=== PATIENT | male | born 1960 | race Caucasian/White ===

== ENCOUNTER → 2019-02-09 07:28 | Outpatient (CLI) | payer OTHER, SELFPAY ==
--- NOTE | 2019-02-09 | DI.MRI.S_ITS ---
PROCEDURE: MR SHOULDER LT W CON INDICATIONS: PAIN IN LEFT SHOULDER TECHNIQUE: After the administration of 12 mL of dilute intra-articular Gadolinium contrast, oblique coronal T1 and T2 spin echo with fat saturation, oblique sagittal T1 spin echo with and without fat saturation, oblique sagittal T2 fast spin echo with fat saturation, axial T1 spin echo with fat saturation through the shoulder. COMPARISON: None. FINDINGS: Image quality: Diagnostic. Motion artifacts are noted during the study. Rotator cuff: There is full-thickness rupture of the distal supraspinatus and infraspinatus at their insertion on humeral head with 4.3 cm medial retraction of torn tendon fibers to the level of the glenoid. Distal subscapularis tendinosis and low-grade partial-thickness tear is also seen. Moderate supraspinatus muscle atrophy is seen on sagittal images. Bones and bursae: No bone marrow contusions or fractures. Mild to moderate acromioclavicular joint and glenohumeral joint osteoarthritis is seen.. Capsule and soft tissues: Area of signal abnormality in contrast extension into superior anterior labrum at 12 to 1:00 position is seen. There is also signal abnormality involving the anterior-inferior labrum at 5 to 6:00 position. The glenohumeral ligaments appear intact. The long head of the biceps tendon is not visualized, concerning for torn intra-articular portion of long head biceps tendon. The rotator interval appears normal, without fibrosis. The coracohumeral ligament is of normal thickness. No intra-articular bodies. IMPRESSION: 1. Full-thickness rupture of distal supraspinatus and infraspinatus with 4.3 cm medial retraction of torn tendon fibers to the level of glenoid. Moderate supraspinatus muscle atrophy. Tendinosis and low grade intrasubstance partial-thickness tear involving distal subscapularis. 2. Moderate acromioclavicular joint and glenohumeral joint osteoarthritis. 3. Suggestion of focal superior anterior labral tear at 12 to 1:00 position an anterior-inferior labral tear at 5 to 6:00 position. 4. Nonvisualization of the intra-articular portion of long head biceps tendon concerning for proximal long head bicipital tendon tear. Dictated by: Lucas Mcclendon M.D. on 02/09/2019 at 11:36 Approved by: Lucas Mcclendon M.D. on 02/09/2019 at 12:51
--- NOTE | 2019-02-09 | DI.RAD.S_ITS ---
PROCEDURE: FL SHOULDER INJECTION MR/CT LT INDICATIONS: PAIN IN LEFT SHOULDER TECHNIQUE: The indications, alternatives, benefits, risks, and complications of the procedure were explained to the patient. Written informed consent was obtained and placed in the chart. The shoulder was examined fluoroscopically and a site for needle placement chosen for entry into the glenohumeral joint from an anterior approach. The skin was prepped and draped in a sterile fashion, and 1% lidocaine infiltrated from skin down to joint capsule. A spinal needle was inserted into the glenohumeral joint, and a small amount of iodinated contrast media injected to confirm intra-articular placement of the needle tip. This was followed by approximately 12 mL dilute solution of a gadolinium containing MR contrast agent. The needle was removed and a dressing was applied. The patient was given postprocedural instructions and sent to the MR suite for MR imaging. FINDINGS: A single fluoroscopic spot image demonstrates intra-articular location of injected iodinated contrast. IMPRESSION: Successful fluoroscopically guided administration of dilute Gadolinium solution into the shoulder joint for MR arthrogram. Dictated by: Larry Nash M.D. on 02/09/2019 at 8:40 Approved by: Larry Nash M.D. on 02/09/2019 at 8:41
== END ==
PROVIDERS: PCP Family Medicine; Visit Provider Family Medicine
DX: M25.512 Pain in left shoulder (principal); M19.012 Primary osteoarthritis, left shoulder; M75.122 Complete rotator cuff tear or rupture of left shoulder, not specified as traumatic
CPT/HCPCS: 23350; 73222; 77002; A9579

== ENCOUNTER 2019-02-24 17:40 | Emergency (ER) | payer OTHER, SELFPAY ==
[2019-02-24 17:52] VITALS: BP 137/85; PULSE 69; RESP 16; TEMP 36.7; O2SAT 96; BMI 34.3
--- NOTE | 2019-02-24 18:27 | PC.NURSE ---
pts inner upper thigh just below groin has an area that is red and hard to touch with the center of it being bright red with 3 white spots on it. Pt has hx MRSA and is concerned that it may be MRSA again.
--- NOTE | 2019-02-24 18:41 | ED.SKABFB ---
HPI - Skin/Abscess/Foreign Bdy <Debo Dixon PA-C - Last Filed: 02/24/19 20:36> General Chief complaint: Skin/Abscess/Foreign Body Stated complaint: CYST INNER THIGH RIGHT LEG Time Seen by Provider: 02/24/19 18:03 Source: patient Mode of arrival: Ambulatory Limitations: no limitations History of Present Illness HPI narrative: This 58-year-old gentleman comes in due to concern for cyst or abscess that is infected on his right inner thigh. He states he has had MRSA in the past so thought he should have this checked. He denies any known injury or wound, notice this on Thursday while showering. He states this is not acutely more painful or enlarging, states it did drain some fluid previously not exactly sure what. He denies any fever or other new complaints, states unable to get in quickly with his PCP so came here. Related Data Previous Rx's Medication Instructions Recorded sulfamethoxazole-trimethoprim 1 tab PO Q12H 7 Days #14 tab 02/24/19 [Bactrim DS] Allergies Allergy/AdvReac Type Severity Reaction Status Date / Time No Known Drug Allergies Allergy Verified 02/24/19 17:54 Review of Systems <Debo Dixon PA-C - Last Filed: 02/24/19 20:36> Review of Systems ROS Unobtainable: All systems reviewed & are unremarkable except as noted in HPI and below Patient History <Debo Dixon PA-C - Last Filed: 02/24/19 20:36> Medical History (Updated 02/24/19 @ 19:11 by Debo Dixon PA-C) Cervical radiculopathy (Chronic) Hyperlipidemia (Chronic) Low back pain (Chronic) Lower leg edema (Chronic) 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 LUNGS: Clear to auscultation bilaterally. HEART: Rate and rhythm regular without murmur, normal S1 and S2, no S3 or S4. EXTREMITIES: Trace edema, numerous varicosities DERMATOLOGIC: Right medial thigh there is a mildly erythematous indurated area approximately 2.5 cm largest diameter, no fluctuance or drainage expressed, skin is normal temperature, no streaking Initial Vital Signs Initial Vital Signs: Vital Signs Temperature 98.1 F 02/24/19 17:52 Pulse Rate 69 02/24/19 17:52 Respiratory Rate 16 02/24/19 17:52 Blood Pressure 137/85 02/24/19 17:52 Pulse Oximetry 96 02/24/19 17:52 <Porter Koehler DO - Last Filed: 02/25/19 03:01> Initial Vital Signs Initial Vital Signs: Vital Signs Temperature 98.1 F 02/24/19 17:52 Pulse Rate 69 02/24/19 17:52 Respiratory Rate 16 02/24/19 17:52 Blood Pressure 137/85 02/24/19 17:52 Pulse Oximetry 96 02/24/19 17:52 Course <Debo Dixon PA-C - Last Filed: 02/24/19 20:36> Course Additional Information: Suspect that this abscess already drained as it is indurated, not fluctuated this evening. He does have a history of MRSA and [id number] diabetes. Will start Bactrim and advised her 72 hour follow-up with PCP. He is agreeable with this as well as plan to return if any acutely worsening symptoms in the interim Vital Signs Vital signs: Vital Signs - 8 hr 02/24/19 17:52 Temperature 98.1 F Pulse Rate 69 Respiratory Rate 16 Blood Pressure 137/85 Pulse Oximetry 96 <DO Yuli Adkins Last Filed: 02/25/19 03:01> Vital Signs Vital signs: Vital Signs - 8 hr 02/24/19 17:52 Temperature 98.1 F Pulse Rate 69 Respiratory Rate 16 Blood Pressure 137/85 Pulse Oximetry 96 Discharge Plan Departure Patient Disposition: Home Clinical Impression: Cellulitis Qualifiers: Site of cellulitis: extremity Site of cellulitis of extremity: lower extremity Laterality: right Qualified Code(s): L03.115 - Cellulitis of right lower limb Abscess of skin or subcutaneous tissue Qualifiers: Site of cutaneous abscess: extremity Site of cutaneous abscess of extremity: lower extremity Laterality: right Qualified Code(s): L02.415 - Cutaneous abscess of right lower limb Discharge Date/Time: 02/24/19 19:16 Instructions: DI for Cellulitis -- Child, DI for Skin Abscess Activity Restrictions/Additional Instructions: Based on your exam today I do think you have an abscess and skin infection, however the abscess does not appear to need to be drained now (it sounds like it partially drained already). Given your history of MRSA, I have prescribed an antibiotic called Bactrim for you to start this evening. Please take it twice daily. Please hot pack this area as frequently as possible to help it drain if it needs to. Remain off of work tomorrow to avoid friction on the area. Please call your PCP 1st thing tomorrow and arrange for follow-up on Thursday so that it can be reassessed about 72 hours after starting the antibiotic. As we talked about, you should return to the ED if you have any acutely worsening symptoms or new symptoms such as fever in the interim Prescriptions: New sulfamethoxazole-trimethoprim [Bactrim DS] 800-160 mg tablet 1 tab PO Q12H 7 Days Qty: 14 RF: 0 Referrals: Claudia Smith MD [Primary Care Provider] -
== END 2019-02-24 19:16 | disposition home or self-care (01) ==
PROVIDERS: Emergency Provider Internal Medicine; PCP Family Medicine
DX: L03.115 Cellulitis of right lower limb (principal); L02.415 Cutaneous abscess of right lower limb
CPT/HCPCS: 99282; 99283

== ENCOUNTER → 2020-03-08 09:51 | Outpatient (CLI) | payer OTHER, SELFPAY ==
--- NOTE | 2020-03-08 | DI.MRI.S_ITS ---
PROCEDURE: MR CERVICAL SPINE WO/W CON INDICATIONS: Monoplegia of upper limb affecting TECHNIQUE: Noncontrast sagittal T1 spin echo and T2 fast spin echo, sagittal STIR, foraminal oblique sagittal T2 fast spin echo, axial gradient echo or T2 fast spin echo through the cervical spine. After the administration of contrast, axial and sagittal T1 spin echo with fat saturation through the cervical spine. COMPARISON: Outside Facility, [facility], MRI C-SPINE W/O CONTRAST, 11/01/2010, 8:00. FINDINGS: Image quality: Degraded by motion artifact. Alignment and curvature: There is loss of normal cervical lordosis. There is mild grade 1 anterolisthesis of C2 on C3. Mild grade 1 retrolisthesis of C3 on C4 and C4 on C5. Marrow: Marrow is normal in overall signal, without suspicious enhancement. Fusion at C6-C7 is present. There is mild reactive signal within the endplates adjacent to the C2-C3, C3-C4, C4-C5, and C5-C6 intervertebral discs. Spinal cord: Within the left posterior cord at the upper C5 level, there is an unenhancing high T2 intensity focus measuring 6 mm craniocaudal by 4 mm anteroposterior by 3 mm transverse, as before. No cerebellar tonsillar herniation. No abnormal intramedullary enhancement. Paraspinous soft tissues: No paravertebral masses or suspicious enhancement. C2-3: Congenital canal stenosis. Moderate disc desiccation. Mild diffuse disc bulge. Mild facet and uncovertebral hypertrophy bilaterally. Moderate canal stenosis. Moderate right and mild left foraminal stenosis. No change. C3-4: Congenital canal stenosis. Moderate disc height loss and desiccation. Moderate diffuse disc bulge. Moderate facet and uncovertebral hypertrophy bilaterally. Moderate to severe canal stenosis. Minimal anterior cord flattening. Severe bilateral foraminal stenosis with bilateral L4 nerve root compression. No change. C4-5: Congenital canal stenosis. Moderate disc height loss and desiccation. Moderate diffuse disc bulge/osteophyte with superimposed broad-based central protrusion. Moderate facet and uncovertebral hypertrophy bilaterally. Severe canal stenosis. Moderate cord flattening. Severe bilateral foraminal stenosis with bilateral C5 nerve root compression. No change. C5-6: Congenital canal stenosis. Moderate disc height loss and desiccation. Mild diffuse disc bulge with superimposed broad-based left posterolateral protrusion. Severe canal stenosis. Mild cord flattening. Severe left and moderate right foraminal stenosis. Left C6 nerve root compression. No change. C6-7: Status post fusion. Mild residual osteophyte. Mild facet and uncovertebral hypertrophy bilaterally. Moderate canal stenosis. Mild bilateral foraminal stenosis. No change. C7-T1: Congenital canal stenosis. Moderate disc height loss and desiccation. Mild diffuse disc bulge with superimposed broad-based right posterolateral and far lateral protrusion. Mild facet and uncovertebral hypertrophy bilaterally. Moderate canal stenosis. Severe right and moderate left foraminal stenosis. Right C8 nerve root compression. No change. IMPRESSION: 1. Diffuse congenital canal stenosis with superimposed disc and facet disease, as well as uncovertebral hypertrophy. 2. Multilevel canal stenosis, with associated cord flattening at C3-C4, C4-C5, and C5-C6. 3. Multilevel foraminal stenosis, worst at C3-C4, C4-C5, C5-C6, and C7-T1 where there is associated intraforaminal nerve root compression. Recommend correlation with clinical symptoms to ascertain relevance of these findings. 4. Focal region of cord injury/gliosis within the lower cervical cord is unchanged. Dictated by: Lurdes Tovar M.D. on 03/08/2020 at 10:04 Approved by: Lurdes Tovar M.D. on 03/08/2020 at 10:12
== END ==
PROVIDERS: PCP Family Medicine; Referring Provider Internal Medicine; Visit Provider Internal Medicine
DX: G83.20 Monoplegia of upper limb affecting unspecified side (principal); M48.02 Spinal stenosis, cervical region
CPT/HCPCS: 72156

== ENCOUNTER 2020-06-15 15:34 | Emergency (ER) | payer OTHER, SELFPAY ==
[2020-06-15 15:53] VITALS: BP 173/84; PULSE 87; RESP 16; TEMP 36.4; O2SAT 97; BMI 33.1
[2020-06-15 16:31] LABS: Add Manual Diff / Slide Review NO; Basophils Absolute Auto 100 /uL (0-100); Basophils Percent Auto 0.3 % (0-2); Eosinophils Absolute Auto 100 /uL (0-450); Eosinophils Percent Auto 0.6 % (2-4); Hemoglobin 14.3 g/dL (13.5-17.5); Lymphocytes Absolute Auto 2100 /uL (1100-4500); Lymphocytes Percent Auto 13.6 % (25-40); Mean Corpuscular HGB Conc 33.9 % (30-36); Mean Corpuscular Hemoglobin 30.6 PG (26-34); Mean Corpuscular Volume 90.3 fL (80-100); Monocytes Absolute Auto 1200 /uL (0-900); Neutrophils Absolute Auto 11800 /uL (1500-7000); Neutrophils Percent Auto 77.5 % (50-75); Platelet Count 169 X10^3/uL (150-400); Red Blood Cell Count 4.65 X10^6/uL (4.5-5.9); Red Cell Distribution Width 12.6 % (11.6-14.8); White Blood Cell Count 15.2 X10^3/uL (4.5-11.0)
[2020-06-15 16:32] LABS: INR 1.1 (0.9-1.3); Prothrombin Time 12.8 SECONDS (10.1-12.7)
[2020-06-15 16:34] LABS: PTT Partial Thromboplastin Tim 35 SECONDS (26.4-36.2)
[2020-06-15 16:40] LABS: Alanine Aminotransferase 32 IU/L (<50); Albumin 4.5 g/dL (3.5-5.0); Albumin Globulin Ratio 1.6 (1.0-2.8); Alkaline Phosphatase 79 U/L (38-126); Aspartate Aminotransferase 27 IU/L (17-59); BUN Creatinine Ratio 25.9 (6-22); Bilirubin Total 1.7 mg/dL (0.2-1.3); Blood Urea Nitrogen 14 mg/dL (9-20); Calcium 9.7 mg/dL (8.4-10.2); Carbon Dioxide 30 mmol/L (22-32); Chloride 96 mmol/L (98-107); Estimated Glomerular Filt Rate > 60.0 mL/min (>60); Globulin 2.8 g/dL (1.7-4.1); Glucose 318 mg/dL (70-100); HEMOLYSIS < 15 (0-50); Lipase 56 U/L (23-300); Potassium 3.6 mmol/L (3.4-5.1); Sodium 133 mmol/L (137-145); Total Protein 7.3 g/dL (6.3-8.2)
[2020-06-15 16:41] LABS: Lactate (Lactic Acid) 1.6 mmol/L (0.7-2.1)
[2020-06-15 16:43] LABS: C-Reactive Protein Quant 3.2 mg/dL (<1.0)
[2020-06-15 16:57] LABS: Procalcitonin 0.07 ng/mL (<0.5)
[2020-06-15 17:06] LABS: Erythrocyte Sedimentation Rate 17 MM/HR (0-15)
--- NOTE | 2020-06-15 17:08 | ED.SKABFB ---
HPI - Skin/Abscess/Foreign Bdy General Chief complaint: Skin/Abscess/Foreign Body Stated complaint: thinks left knee is infected Time Seen by Provider: 06/15/20 17:08 Source: patient Mode of arrival: Ambulatory Limitations: no limitations History of Present Illness HPI narrative: 60-year-old male here for evaluation of redness around the outside of his left knee. He states that approximately 1 week ago he did do quite a bit of work when he was on his knees however he did not think that he injured his knee. He did has some blisters over his knee but this seemed to have healed. Last evening he started noticing some discomfort in his knee which worsened overnight and then today started to developed redness. He has also had chills. No objective fevers. Related Data Home Medications Medication Instructions Recorded Confirmed atorvastatin 80 mg tablet 80 mg PO DAILY 05/02/19 05/02/19 gabapentin 600 mg tablet 600 mg PO QID tab 05/02/19 05/02/19 hydrochlorothiazide 25 mg tablet 25 mg PO DAILY 05/02/19 05/02/19 metformin 500 mg tablet 500 mg PO QID tab 05/02/19 05/02/19 naproxen 500 mg tablet 500 mg PO DAILY tab 05/02/19 05/02/19 sitagliptin 100 mg tablet 100 mg PO DAILY 05/02/19 05/02/19 Previous Rx's Medication Instructions Recorded clindamycin HCl 300 mg PO QID 9 Days #36 cap 06/15/20 Allergies Allergy/AdvReac Type Severity Reaction Status Date / Time No Known Drug Allergies Allergy Verified 06/15/20 15:57 Review of Systems Constitutional Constitutional: Reports chills and Denies fever(s) Cardiovascular Cardiovascular: Denies chest pain and Denies dyspnea Respiratory Respiratory: Denies dyspnea Gastrointestinal Gastrointestinal: Denies abdominal pain Musculoskeletal Comments: Discomfort around the left knee Integumentary/Breasts Comments: Redness around the left knee Neurologic Neurologic: Denies behavioral changes Psychiatric Psychiatric: Denies behavioral changes Hematologic/Lymphatic On Anticoagulants: No Allergic/Immunologic Allergic/Immunologic: Denies urticaria Patient History Medical History Cervical radiculopathy Hyperlipidemia Labral tear of shoulder Low back pain Lower leg edema Non-insulin dependent type 2 diabetes mellitus Osteoarthritis Rotator cuff tear Surgical History Status post cervical discectomy Status post hernia repair Social History marital status: Smoking Status: Current some day smoker Smoking Status: Current some day smoker alcohol intake frequency: other Substance Use Type: does not use Exam Initial Vital Signs Initial Vital Signs: Vital Signs Temperature 97.6 F 06/15/20 15:53 Pulse Rate 87 06/15/20 15:53 Respiratory Rate 16 06/15/20 15:53 Blood Pressure 173/84 H 06/15/20 15:53 Pulse Oximetry 97 06/15/20 15:53 Const General: cooperative and comfortable Resp Effort & Inspection: normal respiratory effort Cardio Rate: regular rate Pulses: dorsalis pedis present on the left Skin Other: Patient with a area of redness around the anterior portion the left knee. Does not extend posterior. Neuro General: patient alert, patient awake, patient oriented x3 and moves all extremities Sensory Exam: no sensory deficits noted Extrem Other: Patient does have full range of motion of the left hip left knee and left ankle with minimal tenderness. Psych Appearance: grossly normal and well kempt Course Orders Ordered: ED Orders 06/15/20 16:20 C-Reactive Protein Quant Stat Complete Blood Count AUTO DIFF Stat Comprehensive Metabolic Panel Stat Erythrocyte Sedimentation Rate Stat Lactate (Lactic Acid) Stat Lipase Stat Partial Thromboplastin Time Stat Procalcitonin Stat Prothrombin Time INR Stat Discontinued Medications Clindamycin Phosphate (Cleocin) 900 mg in 50 mls @ 50 mls/hr IV NOW ONE Stop: 06/15/20 18:08 Last Admin: 06/15/20 17:41 Dose: 50 mls/hr Documented by: HUGH Vital Signs Vital signs: Vital Signs - 8 hr 06/15/20 15:53 Temperature 97.6 F Pulse Rate 87 Respiratory Rate 16 Blood Pressure 173/84 H Pulse Oximetry 97 MDM - Skin/Abscess/Foreign Bdy Lab Data Attestation: I reviewed the patient's lab results. Result diagrams: 06/15/20 16:20 06/15/20 16:20 Labs: Lab Results 06/15/20 06/15/20 06/15/20 Range/Units 16:20 16:20 16:20 WBC 15.2 H (4.5-11.0) X10^3/uL RBC 4.65 (4.5-5.9) X10^6/uL Hgb 14.3 (13.5-17.5) g/dL Hct 42.0 (41-53) % MCV 90.3 (80-100) fL MCH 30.6 (26-34) PG MCHC 33.9 (30-36) % RDW 12.6 (11.6-14.8) % Plt Count 169 (150-400) X10^3/uL Neut % (Auto) 77.5 H (50-75) % Lymph % (Auto) 13.6 L (25-40) % Metcalfe % (Auto) 8.0 (3-14) % Eos % (Auto) 0.6 L (2-4) % Baso % (Auto) 0.3 (0-2) % Neut # (Auto) 62924 H (6137-5546) /uL Lymph # (Auto) 2100 (6369-0003) /uL Metcalfe # (Auto) 1200 H (0-900) /uL Eos # (Auto) 100 (0-450) /uL Baso # (Auto) 100 (0-100) /uL ESR (0-15) MM/HR PT 12.8 H (10.1-12.7) SECONDS INR 1.1 (0.9-1.3) APTT 35 (26.4-36.2) SECONDS Sodium 133 L (137-145) mmol/L Potassium 3.6 (3.4-5.1) mmol/L Chloride 96 L (98-107) mmol/L Carbon Dioxide 30 (22-32) mmol/L BUN 14 (9-20) mg/dL Creatinine 0.54 L (0.66-1.25) mg/dL Estimated GFR > 60.0 (>60) mL/min BUN/Creatinine Ratio 25.9 H (6-22) Glucose 318 H (70-100) mg/dL Lactate (0.7-2.1) mmol/L Calcium 9.7 (8.4-10.2) mg/dL Total Bilirubin 1.7 H (0.2-1.3) mg/dL AST 27 (17-59) IU/L ALT 32 (<50) IU/L Alkaline Phosphatase 79 (38-126) U/L C-Reactive Protein (<1.0) mg/dL Total Protein 7.3 (6.3-8.2) g/dL Albumin 4.5 (3.5-5.0) g/dL Globulin 2.8 (1.7-4.1) g/dL Albumin/Globulin Ratio 1.6 (1.0-2.8) Lipase 56 (23-300) U/L Procalcitonin 0.07 (<0.5) ng/mL 06/15/20 06/15/20 06/15/20 Range/Units 16:20 16:20 16:20 WBC (4.5-11.0) X10^3/uL RBC (4.5-5.9) X10^6/uL Hgb (13.5-17.5) g/dL Hct (41-53) % MCV (80-100) fL MCH (26-34) PG MCHC (30-36) % RDW (11.6-14.8) % Plt Count (150-400) X10^3/uL Neut % (Auto) (50-75) % Lymph % (Auto) (25-40) % Metcalfe % (Auto) (3-14) % Eos % (Auto) (2-4) % Baso % (Auto) (0-2) % Neut # (Auto) (7685-8152) /uL Lymph # (Auto) (6830-7437) /uL Metcalfe # (Auto) (0-900) /uL Eos # (Auto) (0-450) /uL Baso # (Auto) (0-100) /uL ESR 17 H (0-15) MM/HR PT (10.1-12.7) SECONDS INR (0.9-1.3) APTT (26.4-36.2) SECONDS Sodium (137-145) mmol/L Potassium (3.4-5.1) mmol/L Chloride (98-107) mmol/L Carbon Dioxide (22-32) mmol/L BUN (9-20) mg/dL Creatinine (0.66-1.25) mg/dL Estimated GFR (>60) mL/min BUN/Creatinine Ratio (6-22) Glucose (70-100) mg/dL Lactate 1.6 (0.7-2.1) mmol/L Calcium (8.4-10.2) mg/dL Total Bilirubin (0.2-1.3) mg/dL AST (17-59) IU/L ALT (<50) IU/L Alkaline Phosphatase (38-126) U/L C-Reactive Protein 3.2 H (<1.0) mg/dL Total Protein (6.3-8.2) g/dL Albumin (3.5-5.0) g/dL Globulin (1.7-4.1) g/dL Albumin/Globulin Ratio (1.0-2.8) Lipase (23-300) U/L Procalcitonin (<0.5) ng/mL MDM Narrative Medical decision making narrative: Patient does have leukocytosis and physical exam findings consistent with an infection around his left knee. Given his presentation and the fact that he can bend his left knee I do have a very low suspicion for a septic joint. I have a higher suspicion for either a bursitis/septic bursitis/cellulitis. Patient is nontoxic appearing. He is neurovascularly intact. I feel given the redness around his knee and my low suspicion for septic joint that performing a arthrocentesis would not be peña has I would have to go through the cellulitic skin tissue in order to obtain the fluid. I did discuss this with him and he agrees on holding on any sort of procedure for now. He does not have any crepitus or other findings concerning for a necrotizing infection. Patient was given antibiotics here in the emergency department and will send home with a prescription for oral antibiotics. He was given strict return precautions and follow-up instructions. He expressed understanding and agreement. Discharge Plan Departure Patient Disposition: Home Clinical Impression: Cellulitis Instructions: DI for Cellulitis -- Adult Activity Restrictions/Additional Instructions: The redness around her knee today is concerning for a skin infection which is cold cellulitis. Based on the fact you can been here today I do feel that an infection inside your knee is unlikely however if your symptoms worsen despite the antibiotics or you start to get worsening redness or cannot take the antibiotic please return to the emergency department for further evaluation. Prescriptions: New clindamycin HCl 300 mg capsule 300 mg PO QID 9 Days Qty: 36 RF: 0 No Action metformin 500 mg tablet 500 mg PO QID RF: 0 atorvastatin 80 mg tablet 80 mg PO DAILY RF: 0 hydrochlorothiazide 25 mg tablet 25 mg PO DAILY RF: 0 gabapentin [Neurontin] 600 mg tablet 600 mg PO QID RF: 0 Januvia 100 mg tablet 100 mg PO DAILY RF: 0 naproxen 500 mg tablet 500 mg PO DAILY RF: 0
[2020-06-15] MEDS: CLINDAMYCIN 900 MG/50 ML PIGGYBACK 50 MG IV (17:41)
[2020-06-15 18:54] VITALS: BP 148/76; PULSE 78; RESP 16; O2SAT 98
== END 2020-06-15 18:55 | disposition home or self-care (01) ==
PROVIDERS: Emergency Provider Emergency Medicine
DX: L03.116 Cellulitis of left lower limb (principal)
CPT/HCPCS: 36415; 80053; 83605; 83690; 84145; 85025; 85610; 85651; 85730; 86140; 96365; 99281; 99284

== ENCOUNTER 2020-06-17 06:06 | Emergency (ER) | payer OTHER, SELFPAY ==
[2020-06-17 06:15] VITALS: BP 179/84; PULSE 75; RESP 18; TEMP 37.1; O2SAT 98; BMI 34.2
--- NOTE | 2020-06-17 06:31 | ED_ITS ---
HPI - Extremity Injury (Lower) <Fatou Miller DO - Last Filed: 06/17/20 18:03> General Chief Complaint: Extremity Injury, Lower Stated Complaint: left knee infection, spreading Time Seen by Provider: 06/17/20 06:26 Source: patient Mode of arrival: Ambulatory Limitations: no limitations History of Present Illness HPI Narrative: 60-year-old male who presents with left knee cellulitis infec tion. He was seen evaluated here 2 days ago he was started on clindamycin which he says is been taking however the erythema has gone far beyond the marked line. He is able to ambulate and weightbear he says he is not in a lot of pain but he noticed the redness seems to be spreading. He denies any fever or chills. No injury to the knee. I said initially started as a blister and progressively w orsened. Related Data Home Medications Medication Instructions Recorded Confirmed atorvastatin 80 mg tablet 80 mg PO DAILY 05/02/19 05/02/19 gabapentin 600 mg tablet 600 mg PO QID tab 05/02/19 05/02/19 hydrochlorothiazide 25 mg tablet 25 mg PO DAILY 05/02/19 05/02/19 metformin 500 mg tablet 500 mg PO QID tab 05/02/19 05/02/19 naproxen 500 mg tablet 500 mg PO DAILY tab 05/02/19 05/02/19 sitagliptin 100 mg tablet 100 mg PO DAILY 05/02/19 05/02/19 Previous Rx's Medication Instructions Recorded clindamycin HCl 300 mg PO QID 9 Days #36 cap 06/15/20 Allergies Allergy/AdvReac Type Severity Reaction Status Date / Time No Known Drug Allergies Allergy Verified 06/15/20 15:57 Review of Systems <Fatou Miller DO - Last Filed: 06/17/20 18:03> Review of Systems Narrative: GENERAL: Denies chills, fatigue, malaise, fever, sweats, travel HEENT: Denies sinus pain, ear pain, sore throat, difficulty swallowing, neck pain RESPIRATORY: Denies dyspnea, cough, wheezing, hemoptysis, sputum. CARDIOVASCULAR: Denies chest pain, palpitations, orthopnea, edema GASTROINTESTINAL: Denies nausea, vomiting, abdominal pain, diarrhea, constipat ion, melena. : Denies dysuria, frequency, incontinence, hematuria, urinary retention, flank pain. MUSCULOSKELETAL: Denies weakness, joint pain, or bony pain SKIN: See HPI NEUROLOGIC: Denies weakness, dizziness, headache, numbness, change in speech, confusion PSYCHIATRIC: No concerning psychosocial issues. 12 point review of systems is negative except for those stated above and HPI Patient History <Fatou Miller DO - Last Filed: 06/17/20 18:03> Medical History Cervical radiculopathy Hyperlipidemia Labral tear of shoulder Low back pain Lower leg edema Non-insulin dependent type 2 diabetes mellitus Osteoarthritis Rotator cuff tear Surgical History Status post cervical discectomy Status post hernia repair Social History marital status: Smoking Status: Current some day smoker Smoking Status: Current some day smoker alcohol intake frequency: other Substance Use Type: does not use Exam <Fatou Miller DO - Last Filed: 06/17/20 18:03> Initial Vital Signs Initial Vital Signs: Vital Signs Temperature 98.7 F 06/17/20 06:15 Pulse Rate 75 06/17/20 06:15 Respiratory Rate 18 06/17/20 06:15 Blood Pressure 179/84 H 06/17/20 06:15 Pulse Oximetry 98 06/17/20 06:15 GENERAL: Pleasant 60-year-old male and in no acute distress. HEENT: Head atraumatic,EOMI, pupils reactive, face symmetric, moist mucous membranes CARDIOVASCULAR: Regular rate and rhythm without murmurs, rubs or gallops. RESPIRATORY: Breath sounds equal bilaterally, no wheezes rales or rhonchi. EXTREMITIES: Normal range of motion, no clubbing or edema. Neurovascularly intact Of left knee patellar swelling but nontender full flexion and extension no flow slightly limited to this swelling NEUROLOGICAL: Alert and oriented x4.Normal gait and speech. Cranial nerves II through XII grossly intact. SKIN: Left knee is erythematous and down mid lower leg and spreading beyond the marked line more than 3 finger. A blanchable <Colt Rivera DO - Last Filed: 06/17/20 08:02> Initial Vital Signs Initial Vital Signs: Vital Signs Temperature 98.7 F 06/17/20 06:15 Pulse Rate 75 06/17/20 06:15 Respiratory Rate 18 06/17/20 06:15 Blood Pressure 179/84 H 06/17/20 06:15 Pulse Oximetry 98 06/17/20 06:15 Course <Fatou Miller DO - Last Filed: 06/17/20 18:03> Orders Ordered: Discontinued Medications Ceftriaxone Sodium/Dextrose (Rocephin) 1 gm in 50 mls @ 100 mls/hr IV NOW ONE Stop: 06/17/20 07:18 Last Infusion: 06/17/20 08:10 Dose: Infused Documented by: Vital Signs Vital signs: Vital Signs - 8 hr 06/17/20 06:15 Temperature 98.7 F Pulse Rate 75 Respiratory Rate 18 Blood Pressure 179/84 H Pulse Oximetry 98 <Colt Rivera DO - Last Filed: 06/17/20 08:02> Orders Ordered: Discontinued Medications Ceftriaxone Sodium/Dextrose (Rocephin) 1 gm in 50 mls @ 100 mls/hr IV NOW ONE Stop: 06/17/20 07:18 Last Infusion: 06/17/20 08:10 Dose: Infused Documented by: Vital Signs Vital signs: Vital Signs - 8 hr 06/17/20 06:15 Temperature 98.7 F Pulse Rate 75 Respiratory Rate 18 Blood Pressure 179/84 H Pulse Oximetry 98 MDM - Extremity Injury (Lower) <DO Yuli Lopez Last Filed: 06/17/20 18:03> Lab Data Result diagrams: 06/17/20 06:45 06/17/20 06:45 Labs: Lab Results 06/17/20 06/17/20 Range/Units 06:45 06:45 WBC 10.9 (4.5-11.0) X10^3/uL RBC 4.36 L (4.5-5.9) X10^6/uL Hgb 13.4 L (13.5-17.5) g/dL Hct 39.6 L (41-53) % MCV 90.8 (80-100) fL MCH 30.8 (26-34) PG MCHC 33.9 (30-36) % RDW 12.6 (11.6-14.8) % Plt Count 154 (150-400) X10^3/uL Neut % (Auto) 78.5 H (50-75) % Lymph % (Auto) 10.8 L (25-40) % Pratt % (Auto) 9.4 (3-14) % Eos % (Auto) 0.9 L (2-4) % Baso % (Auto) 0.4 (0-2) % Neut # (Auto) 8600 H (9600-0345) /uL Lymph # (Auto) 1200 (4340-9098) /uL Pratt # (Auto) 1000 H (0-900) /uL Eos # (Auto) 100 (0-450) /uL Baso # (Auto) 0 (0-100) /uL Sodium 135 L (137-145) mmol/L Potassium 3.9 (3.4-5.1) mmol/L Chloride 100 (98-107) mmol/L Carbon Dioxide 30 (22-32) mmol/L BUN 14 (9-20) mg/dL Creatinine 0.46 L (0.66-1.25) mg/dL Estimated GFR > 60.0 (>60) mL/min BUN/Creatinine Ratio 30.4 H (6-22) Glucose 295 H (70-100) mg/dL Calcium 9.3 (8.4-10.2) mg/dL Total Bilirubin 1.0 (0.2-1.3) mg/dL AST 19 (17-59) IU/L ALT 26 (<50) IU/L Alkaline Phosphatase 81 (38-126) U/L Total Protein 6.8 (6.3-8.2) g/dL Albumin 4.0 (3.5-5.0) g/dL Globulin 2.8 (1.7-4.1) g/dL Albumin/Globulin Ratio 1.4 (1.0-2.8) Procalcitonin 0.05 (<0.5) ng/mL <Colt Rivera, DO - Last Filed: 06/17/20 08:02> Lab Data Labs: Lab Results 06/17/20 06/17/20 Range/Units 06:45 06:45 WBC 10.9 (4.5-11.0) X10^3/uL RBC 4.36 L (4.5-5.9) X10^6/uL Hgb 13.4 L (13.5-17.5) g/dL Hct 39.6 L (41-53) % MCV 90.8 (80-100) fL MCH 30.8 (26-34) PG MCHC 33.9 (30-36) % RDW 12.6 (11.6-14.8) % Plt Count 154 (150-400) X10^3/uL Neut % (Auto) 78.5 H (50-75) % Lymph % (Auto) 10.8 L (25-40) % Pratt % (Auto) 9.4 (3-14) % Eos % (Auto) 0.9 L (2-4) % Baso % (Auto) 0.4 (0-2) % Neut # (Auto) 8600 H (2820-5872) /uL Lymph # (Auto) 1200 (7726-0884) /uL Pratt # (Auto) 1000 H (0-900) /uL Eos # (Auto) 100 (0-450) /uL Baso # (Auto) 0 (0-100) /uL Sodium 135 L (137-145) mmol/L Potassium 3.9 (3.4-5.1) mmol/L Chloride 100 (98-107) mmol/L Carbon Dioxide 30 (22-32) mmol/L BUN 14 (9-20) mg/dL Creatinine 0.46 L (0.66-1.25) mg/dL Estimated GFR > 60.0 (>60) mL/min BUN/Creatinine Ratio 30.4 H (6-22) Glucose 295 H (70-100) mg/dL Calcium 9.3 (8.4-10.2) mg/dL Total Bilirubin 1.0 (0.2-1.3) mg/dL AST 19 (17-59) IU/L ALT 26 (<50) IU/L Alkaline Phosphatase 81 (38-126) U/L Total Protein 6.8 (6.3-8.2) g/dL Albumin 4.0 (3.5-5.0) g/dL Globulin 2.8 (1.7-4.1) g/dL Albumin/Globulin Ratio 1.4 (1.0-2.8) Procalcitonin 0.05 (<0.5) ng/mL MDM Narrative Medical decision making narrative: Dr rivera: Received turned over from Dr Miller. I evaluated this patient couple days ago when he was here in the emergency department. I outlined the redness around his left knee. He received clindamycin here in the emergency department. He was given return instructions. I felt at that time that he did not have a septic joint. He returns to the emergency department today for worsening redness. He does admit that overall he feels much better. His chills and headaches are gone. He states that his knee is less tender. He states that the discomfort that he was having on the front of his knee has much improved. He even thinks that he could kneel if needed which he could not do a couple days ago. I evaluated the patient late in the day on Thursday. He states he woke up on Thursday and the redness had extended well outside of the line that we had drawn here in the ER. He did take 4 doses of his clindamycin on Thursday as directed. He also took 1 dose this morning. He stated that he did not want to come in yesterday because he thought that only 1 dose of antibiotics was not enough however when the redness was not gone this morning he thought he should be evaluated. He does not think that the redness is worse this morning than what it was yesterday. He still has no joint tenderness with flexion of his knee. He has no hip or ankle tenderness. His labs today show no leukocytosis. Has a negative procalcitonin. He is nontoxic appearing. He is afebrile. He is not tachycardic. He is not tachypneic. And clinically he looks very well. Had a discussion with him regarding her options which include admitting him to the hospital for IV antibiotics verses does changing him to another antibiotic versus giving him some more time on his current antibiotic. After this discussion the plan will be is to keep him on his current antibiotic. The new redness was outlined with a skin marker and he was given strict return precautions. Feel that we will no within the next 24-48 hours whether not the antibiotic that he is on is appropriate for this type of infection which it should be. He did express understanding that this could po tentially mean that he will need another emergency department visit. Discharge Plan Departure Patient Disposition: Home Clinical Impression: Cellulitis Instructions: DI for Cellulitis -- Adult Activity Restrictions/Additional Instructions: After our discussion today the plan will be is to continue you on your current antibiotic regimen. I am happy to hear that your generally feeling better. I suspect that we are going to know within the next 24-48 hours of your current antibiotic is working for this infection. If you start to feel poorly again or if you have more pain or if the redness extends outside the line that was drawn today please return to the emergency department has we will most likely need to either admit you to the hospital or switch antibiotics. Continue the rest your medications as directed. Prescriptions: No Action clindamycin HCl 300 mg capsule 300 mg PO QID 9 Days Qty: 36 RF: 0 metformin 500 mg tablet 500 mg PO QID RF: 0 atorvastatin 80 mg tablet 80 mg PO DAILY RF: 0 hydrochlorothiazide 25 mg tablet 25 mg PO DAILY RF: 0 gabapentin [Neurontin] 600 mg tablet 600 mg PO QID RF: 0 Januvia 100 mg tablet 100 mg PO DAILY RF: 0 naproxen 500 mg tablet 500 mg PO DAILY RF: 0
[2020-06-17 06:58] LABS: Add Manual Diff / Slide Review NO; Basophils Absolute Auto 0 /uL (0-100); Basophils Percent Auto 0.4 % (0-2); Eosinophils Absolute Auto 100 /uL (0-450); Eosinophils Percent Auto 0.9 % (2-4); Hematocrit 39.6 % (41-53); Hemoglobin 13.4 g/dL (13.5-17.5); Lymphocytes Absolute Auto 1200 /uL (1100-4500); Lymphocytes Percent Auto 10.8 % (25-40); Mean Corpuscular HGB Conc 33.9 % (30-36); Mean Corpuscular Hemoglobin 30.8 PG (26-34); Mean Corpuscular Volume 90.8 fL (80-100); Monocytes Absolute Auto 1000 /uL (0-900); Monocytes Percent Auto 9.4 % (3-14); Neutrophils Absolute Auto 8600 /uL (1500-7000); Neutrophils Percent Auto 78.5 % (50-75); Platelet Count 154 X10^3/uL (150-400); Red Blood Cell Count 4.36 X10^6/uL (4.5-5.9); Red Cell Distribution Width 12.6 % (11.6-14.8); White Blood Cell Count 10.9 X10^3/uL (4.5-11.0)
[2020-06-17 07:07] LABS: Alanine Aminotransferase 26 IU/L (<50); Albumin Globulin Ratio 1.4 (1.0-2.8); Alkaline Phosphatase 81 U/L (38-126); Aspartate Aminotransferase 19 IU/L (17-59); BUN Creatinine Ratio 30.4 (6-22); Blood Urea Nitrogen 14 mg/dL (9-20); Calcium 9.3 mg/dL (8.4-10.2); Carbon Dioxide 30 mmol/L (22-32); Chloride 100 mmol/L (98-107); Estimated Glomerular Filt Rate > 60.0 mL/min (>60); Globulin 2.8 g/dL (1.7-4.1); Glucose 295 mg/dL (70-100); HEMOLYSIS < 15 (0-50); Potassium 3.9 mmol/L (3.4-5.1); Sodium 135 mmol/L (137-145); Total Protein 6.8 g/dL (6.3-8.2)
[2020-06-17 07:24] LABS: Procalcitonin 0.05 ng/mL (<0.5)
[2020-06-17] MEDS: CEFTRIAXONE 1 GM/50 ML FROZ.PIGGY IV (07:36)
[2020-06-17 08:17] VITALS: BP 179/84; PULSE 82; RESP 16; O2SAT 99
== END 2020-06-17 08:19 | disposition home or self-care (01) ==
PROVIDERS: Emergency Medicine; Emergency Provider Emergency Medicine
DX: L03.116 Cellulitis of left lower limb (principal)
CPT/HCPCS: 36415; 80053; 84145; 85025; 87040; 96365; 99283; 99284

== ENCOUNTER → 2022-05-08 16:07 | Outpatient (CLI) | payer OTHER, SELFPAY ==
--- NOTE | 2022-05-08 16:09 | DI.MRI.S_ITS ---
PROCEDURE: MR LUMBAR SPINE WO CON INDICATIONS: Radiculopathy, lumbar region TECHNIQUE: Noncontrast sagittal T1 spin echo and T2 fast echo, sagittal STIR, and T2 fast spin echo through the lumbar spine. In cases with scoliosis, additional coronal T2 fast spin echo may be performed. COMPARISON: None. FINDINGS: Image quality: Excellent. Alignment and Curvature: There is approximately 5 mm of grade 1 anterolisthesis of L4 on L5. Severe bilateral facet arthropathy at this level. No definite pars defect identified. Bone Marrow: Marrow is of normal overall signal. No acute vertebral body compression fractures. Spinal Cord: Conus medullaris terminates at the L1 level. Visualized cord demonstrates normal signal and size. Paraspinous Soft Tissues: No paravertebral masses. T12-L1: Normal appearance. L1-L2: Mild bilateral facet arthropathy. Minimal loss of disc signal intensity. Small focal posterior midline disc protrusion. Mild ligamentum flavum hypertrophy. Minimal right neural foraminal stenosis. No significant spinal canal stenosis. L2-L3: There is minimal loss of disc height. Mild loss of disc signal intensity. Broad-based symmetric disc bulge. Mild bilateral facet arthropathy and ligamentum flavum hypertrophy. Combination of findings result in mild-moderate spinal canal stenosis and mild bilateral neural foraminal stenosis. L3-L4: Mild bilateral facet arthropathy. No significant spinal canal stenosis or neural foraminal stenosis. L4-L5: As described above, 5 mm of anterolisthesis of L4 on L5 with mild loss of signal intensity. Symmetric disc bulge and mild uncovering of the posterior L4-5 disc. Severe bilateral facet arthropathy and ligamentum flavum hypertrophy. Combination of findings result in moderate-severe spinal canal stenosis with moderate bilateral neural foraminal stenosis. L5-S1: Minimal loss of disc signal intensity. Small broad-based slightly eccentric to the left posterior disc bulge. Mild bilateral facet arthropathy. Mild left neural foraminal stenosis. No significant spinal canal stenosis. IMPRESSION: Multilevel, multifactorial lumbar spondylosis as described above by vertebral body level. Findings are most severe at L4-5 where combination of grade 1 anterolisthesis, severe bilateral facet arthropathy, disc bulge, and ligamentum flavum hypertrophy result in moderate-severe spinal canal stenosis and moderate bilateral neural foraminal stenosis. No acute abnormalities identified in the lumbar spine Dictated by: Larry Nash M.D. on 05/09/2022 at 8:16 Approved by: Larry Nash M.D. on 05/09/2022 at 8:36
== END ==
PROVIDERS: PCP Student in an Organized Health Care Education/Training Program; Referring Provider Student in an Organized Health Care Education/Training Program; Visit Provider Student in an Organized Health Care Education/Training Program
DX: M47.26 Other spondylosis with radiculopathy, lumbar region (principal); M43.16 Spondylolisthesis, lumbar region; M47.27 Other spondylosis with radiculopathy, lumbosacral region; M51.16 Intervertebral disc disorders with radiculopathy, lumbar region; E11.9 Type 2 diabetes mellitus without complications
CPT/HCPCS: 72148

== ENCOUNTER 2023-01-02 17:47 | Inpatient (IN) | payer OTHER, SELFPAY ==
[2023-01-02] VITALS (13 sets, daily range): BP systolic 130–160; BP diastolic 64–78; PULSE 73–93; RESP 14–26; TEMP 37.3–38.1; O2SAT 94–99; BMI 29.9
--- NOTE | 2023-01-02 17:57 | DI.RAD.S_ITS ---
PROCEDURE: XR CHEST 1V INDICATIONS: suspected sepsis TECHNIQUE: One view of the chest was acquired. COMPARISON: None. FINDINGS: Surgical changes and devices: None. Lungs and pleura: Lungs are clear. No pleural effusions or pneumothorax. Mediastinum: Mediastinal contours appear normal. Heart size is normal. Bones and chest wall: No suspicious bony lesions. Overlying soft tissues appear unremarkable. IMPRESSION: No acute cardiopulmonary abnormality. Dictated by: Mega Solis M.D. on 01/02/2023 at 18:46 Approved by: Mega Solis M.D. on 01/02/2023 at 18:47
[2023-01-02 18:19] LABS: Add Manual Diff / Slide Review NO; Basophils Absolute Auto 0 /uL (0-100); Basophils Percent Auto 0.3 % (0-2); Eosinophils Absolute Auto 100 /uL (0-450); Eosinophils Percent Auto 0.5 % (2-4); Hematocrit 38.4 % (41-53); Hemoglobin 13.1 g/dL (13.5-17.5); Lymphocytes Absolute Auto 1400 /uL (1100-4500); Lymphocytes Percent Auto 9.6 % (25-40); Mean Corpuscular HGB Conc 34.2 % (30-36); Mean Corpuscular Hemoglobin 31.6 PG (26-34); Mean Corpuscular Volume 92.6 fL (80-100); Monocytes Absolute Auto 1300 /uL (0-900); Monocytes Percent Auto 8.8 % (3-14); Neutrophils Absolute Auto 11700 /uL (1500-7000); Neutrophils Percent Auto 80.8 % (50-75); Platelet Count 188 X10^3/uL (150-400); Red Blood Cell Count 4.15 X10^6/uL (4.5-5.9); Red Cell Distribution Width 12.7 % (11.6-14.8); White Blood Cell Count 14.4 X10^3/uL (4.5-11.0)
[2023-01-02 18:27] LABS: INR 1.2 (0.9-1.3); Prothrombin Time 13.2 SECONDS (10.1-12.7)
[2023-01-02] MEDS: SODIUM CHLORIDE 0.9% 2,535 ML 845 ML IV (18:29)
[2023-01-02 18:30] LABS: PTT Partial Thromboplastin Tim 33 SECONDS (26-36)
[2023-01-02 18:31] LABS: Lactate (Lactic Acid) 1.2 mmol/L (0.7-2.1)
[2023-01-02 18:32] LABS: Alanine Aminotransferase 31 IU/L (<50); Albumin 4.5 g/dL (3.5-5.0); Albumin Globulin Ratio 1.5 (1.0-2.8); Alkaline Phosphatase 65 U/L (38-126); Aspartate Aminotransferase 23 IU/L (17-59); BUN Creatinine Ratio 17.5 (6-22); Bilirubin Total 1.3 mg/dL (0.2-1.3); Blood Urea Nitrogen 17 mg/dL (9-20); Calcium 10.5 mg/dL (8.4-10.2); Carbon Dioxide 29 mmol/L (22-32); Chloride 96 mmol/L (98-107); Estimated Glomerular Filt Rate > 60 mL/min (>60); Glucose 160 mg/dL (80-110); HEMOLYSIS < 15 (0-50); Lipase 264 U/L (23-300); Potassium 3.8 mmol/L (3.4-5.1); Sodium 135 mmol/L (137-145); Total Protein 7.5 g/dL (6.3-8.2)
[2023-01-02 18:36] LABS: C-Reactive Protein Quant 3.8 mg/dL (<1.0)
[2023-01-02 18:42] LABS: Erythrocyte Sedimentation Rate 33 MM/HR (0-15)
[2023-01-02 18:48] LABS: Procalcitonin 0.05 ng/mL (<0.5)
--- NOTE | 2023-01-02 18:54 | ED_ITS ---
HPI - Skin/Abscess/Foreign Bdy General Chief complaint: Skin/Abscess/Foreign Body Stated complaint: R knee infection Time Seen by Provider: 01/02/23 18:05 Source: patient Mode of arrival: Ambulatory Limitations: no limitations History of Present Illness HPI narrative: 62-year-old male diabetic and smoker presents with a chief complaint of rapidly worsening pain, redness and swelling on his right anterior knee and now up his lateral leg and down his lateral leg. He states that he was crawling on concrete 2 days ago and abraded his knee and now he has pain swelling redness fever and shaking chills. He is not dizzy or lightheaded but generally feels unwell. He has had MRSA in the past. He denies any chest pain or shortness of breath. Related Data Home Medications Medication Instructions Recorded Confirmed atorvastatin 80 mg tablet 80 mg PO DAILY 05/02/19 05/02/19 gabapentin 600 mg tablet 600 mg PO QID 05/02/19 05/02/19 (Neurontin) hydrochlorothiazide 25 mg tablet 25 mg PO DAILY 05/02/19 05/02/19 metformin 500 mg tablet 500 mg PO QID 05/02/19 05/02/19 naproxen 500 mg tablet 500 mg PO DAILY 05/02/19 05/02/19 sitagliptin phosphate 100 mg 100 mg PO DAILY 05/02/19 05/02/19 tablet (Januvia) Allergies Allergy/AdvReac Type Severity Reaction Status Date / Time No Known Drug Allergies Allergy Verified 01/02/23 17:55 Review of Systems Review of Systems Narrative: GENERAL: see HPI HEENT: Denies sinus pain, ear pain, sore throat, difficulty swallowing, dizziness. RESPIRATORY: Denies dyspnea, cough, wheezing, hemoptysis, sputum. CARDIOVASCULAR: Denies chest pain, palpitations, orthopnea, edema, GASTROINTESTINAL: Denies nausea, vomiting, abdominal pain, diarrhea, constipation, melena. : Denies dysuria, frequency, incontinence, hematuria, urinary retention. MUSCULOSKELETAL: denies weakness, joint pain, or bony pain SKIN: see HPI NEUROLOGIC: Denies weakness, headache, numbness, change in speech, confusion, seizures, incoordination. PSYCHIATRIC: No concerning psychosocial issues. 12 point review of systems is negative except for those stated above Patient History Medical History Cervical radiculopathy Hyperlipidemia Labral tear of shoulder Low back pain Lower leg edema Non-insulin dependent type 2 diabetes mellitus Osteoarthritis Rotator cuff tear Surgical History Status post cervical discectomy Status post hernia repair Social History marital status: Smoking Status: Current some day smoker Smoking Status: Current some day smoker tobacco type: cigarettes alcohol intake frequency: other Substance Use Type: does not use Exam Narrative Exam Narrative: GENERAL: [62] year old patient appears stated age. Well-developed patient, in mild distress. HEAD: Atraumatic. Normocephalic. EYES: Pupils equal round and reactive. Extraocular motions intact. No scleral icterus. No injection or drainage. ENT: Nose without bleeding, purulent drainage. Throat without erythema, tonsillar hypertrophy or exudate. Airway patent. NECK: Trachea midline. Non tender CARDIOVASCULAR: Tachycardic but regular rhythm without murmurs, gallops, or rubs. RESPIRATORY: Slightly tachypneic Clear to auscultation. Breath sounds equal bilaterally. No wheezes, rales, or rhonchi. GASTROINTESTINAL: Abdomen soft, non-tender, nondistended. EXTREMITIES: Right lower extremity with noted erythema overlying the patella and anterior knee, there is an abrasion and slight ulcerations centrally, no obvious fluctuance but there is induration, significant surrounding erythema on the anterior knee and extending up the right lateral thigh and somewhat inferiorly down the lateral calf. He has full relatively painless range of motion when flexing at the knee suggesting septic arthritis extremely unlikely, compartments are soft, neurovascular status intact BACK: Nontender without deformity or crepitance. No flank tenderness. NEURO: AOx3. SKIN: No rash or erythema of visible areas Initial Vital Signs Initial Vital Signs: Vital Signs Temperature 100.5 F H 01/02/23 17:49 Pulse Rate 93 H 01/02/23 17:49 Respiratory Rate 18 01/02/23 17:49 Blood Pressure 140/70 01/02/23 17:49 Pulse Oximetry 98 01/02/23 17:49 Oxygen Delivery Method Room Air 01/02/23 17:49 Course Orders Ordered: Acetaminophen (Acetaminophen 325 Mg Tablet) 650 mg PO Q6H PRN PRN Reason: Fever/Mild Pain (1-3) Atorvastatin Calcium (Atorvastatin 20 Mg Tablet) 80 mg PO DAILY [facility] Calcium Carbonate (Calcium Carbonate 500 Mg Tab) 1,000 mg PO Q4HR PRN PRN Reason: Dyspepsia Enoxaparin Sodium (Enoxaparin 40 Mg/0.4 Ml Syringe) 40 mg SUBCUT DAILY [facility] Vancomycin HCl/Dextrose (Vancomycin) 2,000 mg in 400 mls @ 200 mls/hr IV Q12H [facility] Last Infusion: 01/02/23 21:58 Dose: 0 mls/hr Documented By: Admin: 01/02/23 19:58 Dose: 200 mls/hr Documented By: BETITO Ibuprofen (Ibuprofen 400 Mg Tablet) 400 mg PO Q4H PRN PRN Reason: Pain, Mild (1-3) Naloxone HCl (Naloxone 0.4 Mg/Ml Vial) 0.2 mg IV Q2MIN PRN PRN Reason: Opiate Reversal Ondansetron HCl (Ondansetron 4 Mg/2 Ml Inj) 4 mg IV NOW PRN PRN Reason: Nausea And Vomiting Ondansetron HCl (Ondansetron 4 Mg Odt) 4 mg PO Q8HR PRN PRN Reason: Nausea And Vomiting Oxycodone HCl (Oxycodone Ir 5 Mg Tablet) 5 mg PO Q3H PRN PRN Reason: Pain, Moderate (4-6) Oxycodone HCl (Oxycodone Ir 10 Mg Tablet) 10 mg PO Q3H PRN PRN Reason: Pain, Severe (7-10) Sitagliptin Phosphate (Sitagliptin 50 Mg Tablet) 100 mg PO DAILY [facility] Vancomycin HCl (Vancomycin Per Pharmacy) 1 request MISC NOW PRN PRN Reason: Leg cellulits Discontinued Medications Sodium Chloride (Normal Saline 0.9%) 1,000 mls @ 1,000 mls/hr IV BOLUS ONE Stop: 01/02/23 18:56 Last Admin: 01/02/23 18:24 Dose: Not Given Documented By: ARTHUR Sodium Chloride (Normal Saline 0.9%) 2,535 mls @ 845 mls/hr 30 ml/kg infuse over 3 hr (2535 ml) IV NOW ONE Stop: 01/02/23 21:05 Last Infusion: 01/02/23 21:43 Dose: 0 mls/hr Documented By: Admin: 01/02/23 18:29 Dose: 845 mls/hr Documented By: SB Consultations Consultation #1: Dr. Moulton (hospitalist) happy to accept on his service Vital Signs Vital signs: Vital Signs - 8 hr 01/02/23 19:30 01/02/23 19:30 01/02/23 20:00 Pulse Rate 79 79 Respiratory Rate 26 H 22 Blood Pressure 160/78 H Pulse Oximetry 97 95 01/02/23 20:02 01/02/23 20:02 01/02/23 20:30 Pulse Rate 76 Respiratory Rate 16 Blood Pressure 148/70 H 134/66 Pulse Oximetry 98 01/02/23 20:30 Pulse Rate 74 Respiratory Rate 14 Blood Pressure Pulse Oximetry 95 MDM - Skin/Abscess/Foreign Bdy Lab Data 01/02/23 18:05 01/02/23 18:05 Labs: Lab Results 01/02/23 01/02/23 01/02/23 Range/Units 18:05 18:05 18:05 WBC 14.4 H (4.5-11.0) X10^3/uL RBC 4.15 L (4.5-5.9) X10^6/uL Hgb 13.1 L (13.5-17.5) g/dL Hct 38.4 L (41-53) % MCV 92.6 (80-100) fL MCH 31.6 (26-34) PG MCHC 34.2 (30-36) % RDW 12.7 (11.6-14.8) % Plt Count 188 (150-400) X10^3/uL Neut % (Auto) 80.8 H (50-75) % Lymph % (Auto) 9.6 L (25-40) % [place] % (Auto) 8.8 (3-14) % Eos % (Auto) 0.5 L (2-4) % Baso % (Auto) 0.3 (0-2) % Neut # (Auto) 68064 H (0208-8459) /uL Lymph # (Auto) 1400 (4301-0958) /uL [place] # (Auto) 1300 H (0-900) /uL Eos # (Auto) 100 (0-450) /uL Baso # (Auto) 0 (0-100) /uL ESR (0-15) MM/HR PT 13.2 H (10.1-12.7) SECONDS INR 1.2 (0.9-1.3) APTT 33 (26-36) SECONDS Sodium 135 L (137-145) mmol/L Potassium 3.8 (3.4-5.1) mmol/L Chloride 96 L (98-107) mmol/L Carbon Dioxide 29 (22-32) mmol/L BUN 17 (9-20) mg/dL Creatinine 0.97 (0.66-1.25) mg/dL Estimated GFR > 60 (>60) mL/min BUN/Creatinine Ratio 17.5 (6-22) Glucose 160 H (80-110) mg/dL Lactate (0.7-2.1) mmol/L Calcium 10.5 H (8.4-10.2) mg/dL Total Bilirubin 1.3 (0.2-1.3) mg/dL AST 23 (17-59) IU/L ALT 31 (<50) IU/L Alkaline Phosphatase 65 (38-126) U/L C-Reactive Protein (<1.0) mg/dL Total Protein 7.5 (6.3-8.2) g/dL Albumin 4.5 (3.5-5.0) g/dL Globulin 3.0 (1.7-4.1) g/dL Albumin/Globulin Ratio 1.5 (1.0-2.8) Lipase 264 (23-300) U/L Procalcitonin 0.05 (<0.5) ng/mL 01/02/23 01/02/23 01/02/23 Range/Units 18:05 18:05 18:05 WBC (4.5-11.0) X10^3/uL RBC (4.5-5.9) X10^6/uL Hgb (13.5-17.5) g/dL Hct (41-53) % MCV (80-100) fL MCH (26-34) PG MCHC (30-36) % RDW (11.6-14.8) % Plt Count (150-400) X10^3/uL Neut % (Auto) (50-75) % Lymph % (Auto) (25-40) % [place] % (Auto) (3-14) % Eos % (Auto) (2-4) % Baso % (Auto) (0-2) % Neut # (Auto) (7212-8485) /uL Lymph # (Auto) (3512-0418) /uL [place] # (Auto) (0-900) /uL Eos # (Auto) (0-450) /uL Baso # (Auto) (0-100) /uL ESR 33 H (0-15) MM/HR PT (10.1-12.7) SECONDS INR (0.9-1.3) APTT (26-36) SECONDS Sodium (137-145) mmol/L Potassium (3.4-5.1) mmol/L Chloride (98-107) mmol/L Carbon Dioxide (22-32) mmol/L BUN (9-20) mg/dL Creatinine (0.66-1.25) mg/dL Estimated GFR (>60) mL/min BUN/Creatinine Ratio (6-22) Glucose (80-110) mg/dL Lactate 1.2 (0.7-2.1) mmol/L Calcium (8.4-10.2) mg/dL Total Bilirubin (0.2-1.3) mg/dL AST (17-59) IU/L ALT (<50) IU/L Alkaline Phosphatase (38-126) U/L C-Reactive Protein 3.8 H (<1.0) mg/dL Total Protein (6.3-8.2) g/dL Albumin (3.5-5.0) g/dL Globulin (1.7-4.1) g/dL Albumin/Globulin Ratio (1.0-2.8) Lipase (23-300) U/L Procalcitonin (<0.5) ng/mL MDM Narrative Medical decision making narrative: [62] year old diabetic patient presents with worsening right knee and lateral leg pain, redness and swelling along with fever and chills Multiple etiologies for patient's symptoms considered including, but not limited to: [Sepsis due to cellulitis, possible small abscess versus other] Prior Charts reviewed in our EMR Primary Historian: patient Labs reviewed and interpreted by myself: Leukocytosis of 14.4 with relative left shift, lactate 1.2, inflammatory markers elevated. Imaging reviewed: Chest x-ray without acute findings Consultations: Hospitalist contacted, see details above 62-year-old male diabetic presents with worsening infection of right lower leg. Meets sepsis criteria and initial septic bundle ordered including blood cultures, lactate, antibiotics and fluids at 30 cc/kilogram. Does not meet severe sepsis criteria, requires hospitalization due to worsening symptoms, likelihood of significant worsening given history of diabetes. Patient understands and agrees with diagnosis and plan Discharge Plan Departure Patient Disposition: Admitted As Inpatient Clinical Impression: Sepsis, Cellulitis of leg, right Admit Date/Time: 01/02/23 20:55 Admit Provider: Devin Couch
[2023-01-02] MEDS: VANCOMYCIN 2,000 MG/400 ML PIGGYBACK 200 MG IV (19:58)
--- NOTE | 2023-01-02 21:12 | PM.HP.1 ---
History of Present Illness History of Present Illness Date Patient Seen: 01/02/23 Chief complaint: R knee infection Narrative: Two-three days after he sustained skin abrasion over Rt knee, from crawling on a concrete, presents to ED with RLE cellulitis, sepsis. He had chills and fever, feels weak, right knee tender and swollen. He has a history of leg cellulitis, a year ago on the left. He was seen in ED then and was treated with po abx. Hx of DM, last A1C, according to the pt, ~8. Likely uncontrolled DM, probably contributing to recurrent infections. [facility] Medical History Cervical radiculopathy Hyperlipidemia Labral tear of shoulder Low back pain Lower leg edema Non-insulin dependent type 2 diabetes mellitus Osteoarthritis Rotator cuff tear Surgical History Status post cervical discectomy Status post hernia repair Social History marital status: Smoking Status: Current some day smoker Meds Home Medications and Allergies Home Medications Medication Instructions Recorded Confirmed Type atorvastatin 80 mg tablet 80 mg PO DAILY 05/02/19 05/02/19 History gabapentin 600 mg tablet 600 mg PO QID 05/02/19 05/02/19 History (Neurontin) hydrochlorothiazide 25 mg tablet 25 mg PO DAILY 05/02/19 05/02/19 History metformin 500 mg tablet 500 mg PO QID 05/02/19 05/02/19 History naproxen 500 mg tablet 500 mg PO DAILY 05/02/19 05/02/19 History sitagliptin phosphate 100 mg 100 mg PO DAILY 05/02/19 05/02/19 History tablet (Januvia) Allergies Allergy/AdvReac Type Severity Reaction Status Date / Time No Known Drug Allergies Allergy Verified 01/02/23 17:55 Review of Systems Constitutional Comments: fever, chills Cardiovascular Comments: w/o chest pain or palpitations Respiratory Comments: w/o shortness of breath Gastrointestinal Comments: w/o complaints Genitourinary Comments: w/o dysuria Musculoskeletal Comments: w/o myalgia Neurologic Comments: w/o focal weakness Exam Vital Signs (past 8 hours): - 01/02/23 17:49 01/02/23 18:20 01/02/23 18:30 Temperature 100.5 F H Pulse Rate 93 H 79 Respiratory Rate 18 Blood Pressure 140/70 134/70 Pulse Oximetry 98 99 Oxygen Delivery Method Room Air 01/02/23 18:30 01/02/23 19:00 01/02/23 19:00 Temperature Pulse Rate 82 77 Respiratory Rate 18 16 Blood Pressure 137/65 Pulse Oximetry 97 94 Oxygen Delivery Method 01/02/23 19:15 01/02/23 19:15 01/02/23 19:30 Temperature Pulse Rate 78 Respiratory Rate Blood Pressure 154/72 H 160/78 H Pulse Oximetry 97 Oxygen Delivery Method 01/02/23 19:30 01/02/23 20:00 01/02/23 20:02 Temperature Pulse Rate 79 79 76 Respiratory Rate 26 H 22 16 Blood Pressure Pulse Oximetry 97 95 98 Oxygen Delivery Method 01/02/23 20:02 01/02/23 20:30 01/02/23 20:30 Temperature Pulse Rate 74 Respiratory Rate 14 Blood Pressure 148/70 H 134/66 Pulse Oximetry 95 Oxygen Delivery Method Oxygen Delivery Method Room Air Const Other: laying in bed in no distress Eyes Other: catherine, eomi Neck Other: supple Resp Other: normal respiratory effort Cardio Other: RRR GI Other: abdomen not distended Skin Other: rt knee - non-draining small wound, swollen, erythematous, Neuro Other: w/o deficits Psych Other: lucid Objective Labs 01/02/23 18:05 01/02/23 18:05 Labs: Laboratory Results - last 24 hr 01/02/23 01/02/23 01/02/23 18:05 18:05 18:05 WBC 14.4 H RBC 4.15 L Hgb 13.1 L Hct 38.4 L MCV 92.6 MCH 31.6 MCHC 34.2 RDW 12.7 Plt Count 188 Neut % (Auto) 80.8 H Lymph % (Auto) 9.6 L [place] % (Auto) 8.8 Eos % (Auto) 0.5 L Baso % (Auto) 0.3 Neut # (Auto) 60239 H Lymph # (Auto) 1400 [place] # (Auto) 1300 H Eos # (Auto) 100 Baso # (Auto) 0 ESR PT 13.2 H INR 1.2 APTT 33 Sodium 135 L Potassium 3.8 Chloride 96 L Carbon Dioxide 29 BUN 17 Creatinine 0.97 Estimated GFR > 60 BUN/Creatinine Ratio 17.5 Glucose 160 H Lactate Calcium 10.5 H Total Bilirubin 1.3 AST 23 ALT 31 Alkaline Phosphatase 65 C-Reactive Protein Total Protein 7.5 Albumin 4.5 Globulin 3.0 Albumin/Globulin Ratio 1.5 Lipase 264 Procalcitonin 0.05 01/02/23 01/02/23 01/02/23 18:05 18:05 18:05 WBC RBC Hgb Hct MCV MCH MCHC RDW Plt Count Neut % (Auto) Lymph % (Auto) [place] % (Auto) Eos % (Auto) Baso % (Auto) Neut # (Auto) Lymph # (Auto) [place] # (Auto) Eos # (Auto) Baso # (Auto) ESR 33 H PT INR APTT Sodium Potassium Chloride Carbon Dioxide BUN Creatinine Estimated GFR BUN/Creatinine Ratio Glucose Lactate 1.2 Calcium Total Bilirubin AST ALT Alkaline Phosphatase C-Reactive Protein 3.8 H Total Protein Albumin Globulin Albumin/Globulin Ratio Lipase Procalcitonin Assessment & Plan Assessment and plan (1) Cellulitis of leg, right: Status: Acute (2) Sepsis: Qualifiers: Sepsis type: sepsis due to unspecified organism Sepsis acute organ dysfunction status: without acute organ dysfunction Qualified Code(s): A41.9 - Sepsis, unspecified organism Status: Acute (3) Non-insulin dependent type 2 diabetes mellitus: Status: Chronic (4) Hyperlipidemia: Status: Chronic (5) Cervical radiculopathy: Status: Chronic (6) HTN (hypertension): Status: Acute Plan Rapidly progressing RLE cellulitis, sepsis, admission for IV abx. Had IVFs in ED. Assessment & Plan narrative: 1. RLE Cellulitis - recurrent - risk factors - uncontrolled DM, atherosclerosis - smoker, HLD - Vancomycin 2. Sepsis - fluid resuscitated in ED - monitored 3. DM - A1C pending - Metformin (clarify home dose), Januvia 4. HLD - statin 5. Neuropathy - gabapentin 6. HTN / legs edemas - at home on HCTZ - on hold, had IVFs in ED DVT prophylaxis - Lovenox
[2023-01-03 03:26] VITALS: BP 143/72; PULSE 81; RESP 16; TEMP 37.3; O2SAT 94
[2023-01-03 06:15] LABS: Add Manual Diff / Slide Review NO; Basophils Absolute Auto 0 /uL (0-100); Basophils Percent Auto 0.2 % (0-2); Eosinophils Absolute Auto 200 /uL (0-450); Eosinophils Percent Auto 1.4 % (2-4); Hematocrit 35.9 % (41-53); Hemoglobin 12.2 g/dL (13.5-17.5); Lymphocytes Absolute Auto 1400 /uL (1100-4500); Lymphocytes Percent Auto 12.1 % (25-40); Mean Corpuscular Hemoglobin 31.6 PG (26-34); Mean Corpuscular Volume 92.9 fL (80-100); Monocytes Absolute Auto 1200 /uL (0-900); Monocytes Percent Auto 9.7 % (3-14); Neutrophils Absolute Auto 9200 /uL (1500-7000); Neutrophils Percent Auto 76.6 % (50-75); Platelet Count 156 X10^3/uL (150-400); Red Blood Cell Count 3.86 X10^6/uL (4.5-5.9); Red Cell Distribution Width 12.8 % (11.6-14.8)
[2023-01-03 06:21] LABS: BUN Creatinine Ratio 28.8 (6-22); Blood Urea Nitrogen 17 mg/dL (9-20); Calcium 9.1 mg/dL (8.4-10.2); Carbon Dioxide 27 mmol/L (22-32); Chloride 104 mmol/L (98-107); Estimated Glomerular Filt Rate > 60 mL/min (>60); Glucose 163 mg/dL (80-110); HEMOLYSIS < 15 (0-50); Potassium 3.8 mmol/L (3.4-5.1); Sodium 137 mmol/L (137-145)
[2023-01-03 06:27] LABS: Hemoglobin A1C% w Est Avg Glu 8.1 % (4.0-6.0)
[2023-01-03] MEDS: ACETAMINOPHEN 325 MG TABLET 650 MG PO ×2 (07:40→16:26)
[2023-01-03] MEDS: METFORMIN HCL 500 MG TABLET PO ×2 (07:41→16:26)
[2023-01-03] MEDS: VANCOMYCIN 2,000 MG/400 ML PIGGYBACK 200 MG IV ×2 (07:42→18:35)
[2023-01-03 08:27] VITALS: BP 124/61; PULSE 71; RESP 17; TEMP 36.2; O2SAT 95
[2023-01-03] MEDS: SITAGLIPTIN 50 MG TABLET 100 MG PO (08:34)
[2023-01-03] MEDS: ENOXAPARIN 40 MG/0.4 ML SYRINGE SUBCUT (08:34)
[2023-01-03] MEDS: GABAPENTIN 600 MG TABLET PO ×4 (09:45→20:36)
--- NOTE | 2023-01-03 10:37 | CM.DANOTE ---
Initial DCP Assessment Note Pt is a 62 yo male, resident of [place], presents with R knee infection- Recent knee injury from crawling on the concrete which has developed into RLE cellulitis. Hx leg cellulitis. Uncontrolled DM. PCP: Leandro Amaya Payer: Colby Ramirez Met w/patient, introduced self and role. Patient is indp and active at baseline, lives with his and 22 yo grandson. No Hx of HH or SNF Patient denies needs from this [facility], anticipates returning home w/o needs upon discharge No barriers identified at this time to patient's safe discharge home w/family to assist; close outpatient f/u recommended. 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 No History Provided By Patient,Medical Record Prior Living Arrangements House Household Members spouse Type of transporation used prior to Drives own vehicle admit Independent with ADL's Yes Is patient alert and oriented? Yes Barriers to Discharge No Discharge Plan Home Transportation Arrangement Spouse Referrals Initiated None needed
[2023-01-03 12:06] VITALS: BP 121/60; PULSE 68; RESP 18; TEMP 35.7; O2SAT 95
[2023-01-03] MEDS: cefTRIAXone 2,000 MG in SODIUM CHLORIDE 0.9% 100 ML 200 MG IV (12:53)
--- NOTE | 2023-01-03 14:10 | P.PN_ITS ---
Subjective Subjective Interval history: 62-year-old gentleman with history of diabetes mellitus type 2, hypertension, hyperlipidemia, and osteoarthritis who was admitted last night with right lower extremity cellulitis. He suffered an abrasion to his knee several days ago while crawling on concrete. He had rapid onset of pain, swelling, redness, and feeling generally ill yesterday. Notes given the work he does he frequently has nicks and abrasions to his skin. However, he notes he was concerned when he d eveloped a fever. He reports he is feeling better today. No nausea. No shortness of breath. He does not have any pain within the joint and states that it is the skin itself that feels tender. Exam Vital Signs (past 8 hours): - 01/03/23 08:27 01/03/23 12:06 Temperature 97.2 F L 96.3 F L Pulse Rate 71 68 Respiratory Rate 17 18 Blood Pressure 124/61 121/60 Pulse Oximetry 95 95 Oxygen Flow Rate 0 Oxygen Delivery Method Room Air Oxygen Flow Rate 0 Narrative Exam Narrative: GEN: Very pleasant middle-aged male. Alert and oriented x 3, NAD HEENT:NC, Face symmetric CHEST: Respiratory excursions symmetric, CTAB CV: RRR, no M/R/G ABD: Soft, NT/ND, BT present in all 4 quadrants, no organomegaly or masses EXTR: warm, well perfused, no C/C; right knee is slightly boggy to palpation, moderately swollen, no pain with flexion and extension, small amount of purulent material expressed with palpation of the abrasion, moderate erythema and warmth to the anterior knee as well as laterally SKIN: warm and dry, no rash NEURO: Alert and oriented x 3, nonfocal Objective Labs 01/03/23 05:45 01/03/23 05:45 Labs: Laboratory Results - last 24 hr 01/02/23 01/02/23 01/02/23 18:05 18:05 18:05 WBC 14.4 H RBC 4.15 L Hgb 13.1 L Hct 38.4 L MCV 92.6 MCH 31.6 MCHC 34.2 RDW 12.7 Plt Count 188 Neut % (Auto) 80.8 H Lymph % (Auto) 9.6 L [place] % (Auto) 8.8 Eos % (Auto) 0.5 L Baso % (Auto) 0.3 Neut # (Auto) 10875 H Lymph # (Auto) 1400 [place] # (Auto) 1300 H Eos # (Auto) 100 Baso # (Auto) 0 ESR PT 13.2 H INR 1.2 APTT 33 Sodium 135 L Potassium 3.8 Chloride 96 L Carbon Dioxide 29 BUN 17 Creatinine 0.97 Estimated GFR > 60 BUN/Creatinine Ratio 17.5 Glucose 160 H Hemoglobin A1c Lactate Calcium 10.5 H Total Bilirubin 1.3 AST 23 ALT 31 Alkaline Phosphatase 65 C-Reactive Protein Total Protein 7.5 Albumin 4.5 Globulin 3.0 Albumin/Globulin Ratio 1.5 Lipase 264 Procalcitonin 0.05 01/02/23 01/02/23 01/02/23 18:05 18:05 18:05 WBC RBC Hgb Hct MCV MCH MCHC RDW Plt Count Neut % (Auto) Lymph % (Auto) [place] % (Auto) Eos % (Auto) Baso % (Auto) Neut # (Auto) Lymph # (Auto) [place] # (Auto) Eos # (Auto) Baso # (Auto) ESR 33 H PT INR APTT Sodium Potassium Chloride Carbon Dioxide BUN Creatinine Estimated GFR BUN/Creatinine Ratio Glucose Hemoglobin A1c Lactate 1.2 Calcium Total Bilirubin AST ALT Alkaline Phosphatase C-Reactive Protein 3.8 H Total Protein Albumin Globulin Albumin/Globulin Ratio Lipase Procalcitonin 01/03/23 01/03/23 01/03/23 05:45 05:45 05:45 WBC 12.0 H RBC 3.86 L Hgb 12.2 L Hct 35.9 L MCV 92.9 MCH 31.6 MCHC 34.0 RDW 12.8 Plt Count 156 Neut % (Auto) 76.6 H Lymph % (Auto) 12.1 L [place] % (Auto) 9.7 Eos % (Auto) 1.4 L Baso % (Auto) 0.2 Neut # (Auto) 9200 H Lymph # (Auto) 1400 [place] # (Auto) 1200 H Eos # (Auto) 200 Baso # (Auto) 0 ESR PT INR APTT Sodium 137 Potassium 3.8 Chloride 104 Carbon Dioxide 27 BUN 17 Creatinine 0.59 L Estimated GFR > 60 BUN/Creatinine Ratio 28.8 H Glucose 163 H Hemoglobin A1c 8.1 H Lactate Calcium 9.1 Total Bilirubin AST ALT Alkaline Phosphatase C-Reactive Protein Total Protein Albumin Globulin Albumin/Globulin Ratio Lipase Procalcitonin [facility] Medical History Cervical radiculopathy Hyperlipidemia Labral tear of shoulder Low back pain Lower leg edema Non-insulin dependent type 2 diabetes mellitus Osteoarthritis Rotator cuff tear Surgical History Status post cervical discectomy Status post hernia repair Social History marital status: household members: spouse Smoking Status: Current some day smoker Assessment & Plan Assessment & Plan narrative: 1. Right lower extremity cellulitis Secondary to infected abrasion. I did palpate the wound to evaluate for any concern for foreign body and nothing expressed from the wound itself except for a small amount of purulent material. He reports improvement overall. He is on vancomycin. He reports a distant history of MRSA. Will add Rocephin 2 g IV Q 24 hours. We will continue to monitor for improvement. Encouraged him to keep his leg elevated. 2. Sepsis Patient had a low-grade fever of 100.5 in the emergency department and a heart rate of 93. However, in conjunction with known infection he met criteria for sepsis on admission. He received fluid resuscitation. Thus far, his blood cultures remain negative. He has defervesced. Heart rate has normalized. White blood cell count has improved from 14.4-12.0. 3. Diabetes mellitus type 2, uncontrolled with a hemoglobin A1c of 8.1% Patient is on metformin and Januvia. Will place on fingersticks and sliding scale. Continue controlled carb diet. 4. Hyperlipidemia Continue his usual statin therapy 5. Osteoarthritis Patient reports he has known osteoarthritis in the right knee. He reports it is chronically swollen. Tells me his knee is essentially at baseline with regard to the bogginess. Will continue to monitor. 6. Peripheral neuropathy Continue gabapentin 7. Hypertension Blood pressure is normotensive. Will continue to hold hydrochlorothiazide for now. Code status Full Prophylaxis On Lovenox Disposition Possible discharge tomorrow if improving Surrogate decision maker: Sarah Solis,
--- NOTE | 2023-01-03 19:51 | PC.NURSE ---
Pt refusing blood sugar checks
[2023-01-03] MEDS: ATORVASTATIN 20 MG TABLET 80 MG PO (20:36)
[2023-01-03] MEDS: OXYCODONE IR 10 MG TABLET PO (20:36)
[2023-01-03 20:55] VITALS: BP 127/67; PULSE 66; RESP 16; TEMP 36.4; O2SAT 97
[2023-01-04 05:50] VITALS: BP 129/67; PULSE 66; RESP 16; TEMP 36.8; O2SAT 97
[2023-01-04 07:59] LABS: Vancomycin Trough 7.6 ug/mL (10-20)
[2023-01-04 08:16] VITALS: BP 123/69; PULSE 64; RESP 18; TEMP 36; O2SAT 93
[2023-01-04] MEDS: METFORMIN HCL 500 MG TABLET PO (08:34)
[2023-01-04] MEDS: SITAGLIPTIN 50 MG TABLET 100 MG PO (08:34)
[2023-01-04] MEDS: ENOXAPARIN 40 MG/0.4 ML SYRINGE SUBCUT (08:34)
[2023-01-04] MEDS: GABAPENTIN 600 MG TABLET PO ×2 (08:34→12:22)
[2023-01-04] MEDS: VANCOMYCIN 2,000 MG/400 ML PIGGYBACK 200 MG IV (09:22)
--- NOTE | 2023-01-04 10:56 | P.DS_ITS ---
History of Present Illness History of Present Illness Chief complaint: R knee infection Narrative: Per history and physical: Two-three days after he sustained skin abrasion over Rt knee, from crawling on a concrete, presents to ED with RLE cellulitis, sepsis. He had chills and fever, feels weak, right knee tender and swollen. He has a history of leg cellulitis, a year ago on the left. He was seen in ED then and was treated with po abx. Hx of DM, last A1C, according to the pt, ~8. Likely uncontrolled DM, probably contributing to recurrent infections. Discharge Providers Provider Date of admission: 01/02/23 20:55 Discharge Date: 01/04/23 Primary care physician: Leandro Amaya MD Discharge provider: Paula Fonseca MD Summary Hospital Course Discharge Diagnosis: 1. Right lower extremity cellulitis, improving 2. Infected right knee abrasion/wound with mild purulence, improving 3. Sepsis, resolved 4. Diabetes mellitus type 2, uncontrolled with hemoglobin A1c of 8.1% 5. Hyperlipidemia, chronic, stable 6. Osteoarthritis, chronic, stable 7. Peripheral neuropathy, chronic, stable 8. Hypertension, chronic, stable Hospital Course: Patient was admitted with right knee cellulitis and a small wound secondary to an injury he got while crawling on concrete at work. He had rapid increase in symptoms, including fever, redness, and chills. He mid and placed on IV vancomycin. He does have a history of MRSA remotely. As there was no drainage from the wound, cultures could not be taken. IV Rocephin was added on the day following admission. Patient reported dramatic improvement by the date of discharge. I did reopen the wound as it had sealed up some and there was a small amount of purulent drainage again noted today. No obvious foreign body. He was able to walk on the leg without pain and had no pain with flexion/extens ion. We did have an in-depth conversation about risk for septic arthritis. Concerns for pursuing an aspiration of the knee is introducing infection into the joint space which is already known to be arthritic with effusion, as well as risk of bleeding. Relatively low suspicion given the absence of pain and patient's report that his knee was at baseline with regard to his effusion. Encouraged him to return for any symptoms or signs of worsening infection or debility with the knee. Patient is discharged in stable condition. Status at Discharge Cognitive/behavioral status at discharge: oriented Functional status at discharge: independent ambulation Overall status at discharge: patient is progressing back to baseline Time Spent with Patient Time spent: Greater than 30 minutes Exam Vital Signs (past 8 hours): - 01/04/23 05:50 01/04/23 08:16 Temperature 98.2 F 96.8 F L Pulse Rate 66 64 Respiratory Rate 16 18 Blood Pressure 129/67 123/69 Pulse Oximetry 97 93 Oxygen Flow Rate 0 0 Oxygen Delivery Method Room Air Oxygen Flow Rate 0 Narrative Exam Narrative: GEN:? Very pleasant middle-aged male.? Alert and oriented x 3, NAD HEENT:NC, Face symmetric CHEST: Respiratory excursions symmetric, CTAB CV: RRR, no M/R/G ABD: Soft, NT/ND, BT present in all 4 quadrants, no organomegaly or masses EXTR: warm, well perfused, no C/C; right knee is slightly boggy to palpation, moderately swollen, no pain with flexion and extension, small amount of purulent material expressed with palpation of the wound, erythema is now localized around the wound itself, persistent warmth noted of the anterior knee, but posterior knee warmth has resolved SKIN: warm and dry, no rash NEURO: Alert and oriented x 3, nonfocal Objective Labs 01/03/23 05:45 01/03/23 05:45 Labs: Laboratory Results - last 24 hr 01/04/23 07:05 Vancomycin Trough 7.6 L PFSH Medical History Cervical radiculopathy Hyperlipidemia Labral tear of shoulder Low back pain Lower leg edema Non-insulin dependent type 2 diabetes mellitus Osteoarthritis Rotator cuff tear Surgical History Status post cervical discectomy Status post hernia repair Social History marital status: household members: spouse Smoking Status: Current some day smoker Discharge Plan Discharge Plan Patient Disposition: Home Provider Discharge Comment: You were admitted with Right knee/leg cellulitis from the wound on your knee. When infection is over a joint, we always worry about joint infection. However, as you had no pain and felt your knee was back to your normal (with water on the knee), we did not pursue taking a sample of the fluid to look for infection. You are being sent out w/2 antibiotics. One is to cover possible MRSA. The other covers the rest. Consider probiotics while you are on these medications. Take a couple of days off from work and elevate your leg to reduce swelling. Return to the ED: Fever/chills/increased redness or swelling about the knee/pain with standing or bending the knee. Discharge orders & Medications Prescriptions: New doxycycline monohydrate 100 mg capsule 100 mg PO BID Qty: 14 0RF cephalexin 500 mg capsule 500 mg PO Q8H Qty: 21 0RF Continued metformin 500 mg tablet 500 mg PO QID atorvastatin 80 mg tablet 80 mg PO DAILY hydrochlorothiazide 25 mg tablet 25 mg PO DAILY gabapentin [Neurontin] 600 mg tablet 600 mg PO QID Januvia 100 mg tablet 100 mg PO DAILY naproxen 500 mg tablet 500 mg PO DAILY Follow up/Referrals: Leandro Amaya DO [Primary Care Provider] - (Within 72 hours for recheck.) Diet/Activity/Treatments Diet: Carb-consistent/Diabetic Activity: As tolerated Oxygen: N/A Visit Report/Discharge Packet Instructions: DI for Cellulitis -- Adult, DI for Septic Arthritis Stand Alone Forms: Patient Portal/API, Stroke Signs & Symptoms Discharge Data Primary Care Provider: Leandro Amaya
[2023-01-04] MEDS: cefTRIAXone 2,000 MG in SODIUM CHLORIDE 0.9% 100 ML 200 MG IV (12:21)
--- NOTE | 2023-01-04 13:28 | PC.NURSE ---
Pt A&Ox4, VSS. Belongings gathered, IV removed, pt tolerated well. Discharge information reviewed with patient, patient able to teach back information independently. Pt escorted downstairs by ENERGY TRADER and discharged home.
== END 2023-01-04 13:30 | disposition home or self-care (01) | DRG 872 ==
LOC: ED 19:35 → AC 20:56
PROVIDERS: Emergency Medicine; Admitting Provider Internal Medicine; Emergency Provider Emergency Medicine; PCP Student in an Organized Health Care Education/Training Program; Referring Provider Emergency Medicine; Visit Provider Internal Medicine
DX: A41.9 Sepsis, unspecified organism (principal); L03.115 Cellulitis of right lower limb; M54.12 Radiculopathy, cervical region; I10 Essential (primary) hypertension; Z79.84 Long term (current) use of oral hypoglycemic drugs; E11.42 Type 2 diabetes mellitus with diabetic polyneuropathy; M17.11 Unilateral primary osteoarthritis, right knee; E78.5 Hyperlipidemia, unspecified
CPT/HCPCS: 36415; 71045; 80048; 80053; 80202; 82962; 83036; 83605; 83690; 84145; 85025; 85610; 85651; 85730; 86140; 87040; 93005; 93010; 96365; 96366; 99284; J0696; J1650

== ENCOUNTER 2023-04-19 16:19 | Emergency (ER) | payer OTHER, SELFPAY ==
[2023-01-02 22:29] VITALS: BMI 29.9
[2023-04-19 16:45] VITALS: BP 130/69; PULSE 73; RESP 18; TEMP 36.6; O2SAT 98; BMI 29.3
--- NOTE | 2023-04-19 17:03 | ED_ITS ---
HPI - Ear Problem <Raymond Castillo PA-C - Last Filed: 04/19/23 17:10> General Chief complaint: Ear Stated complaint: poss Ear Infection, cannot get ear to pop Time Seen by Provider: 04/19/23 16:39 Source: family Mode of arrival: Ambulatory History of Present Illness HPI Narrative: 63-year-old male presents to the ED with 2 days of left ear pain. Patient states that he had a cold a few days ago, following which his your symptoms started. Patient denies fever, chills, chest pain, shortness of breath, nausea, vomiting. Related Data Home Medications Medication Instructions Recorded Confirmed atorvastatin 80 mg tablet 80 mg PO DAILY 05/02/19 01/03/23 gabapentin 600 mg tablet 600 mg PO QID 05/02/19 01/03/23 (Neurontin) hydrochlorothiazide 25 mg tablet 25 mg PO DAILY 05/02/19 01/03/23 metformin 500 mg tablet 500 mg PO QID 05/02/19 01/03/23 naproxen 500 mg tablet 500 mg PO DAILY 05/02/19 01/03/23 sitagliptin phosphate 100 mg 100 mg PO DAILY 05/02/19 01/03/23 tablet (Januvia) Previous Rx's Medication Instructions Recorded cephalexin 500 mg capsule 500 mg PO Q8H #21 caps 01/04/23 doxycycline monohydrate 100 mg 100 mg PO BID #14 caps 01/04/23 capsule Allergies Allergy/AdvReac Type Severity Reaction Status Date / Time No Known Drug Allergies Allergy Verified 01/02/23 17:55 Review of Systems <Raymond Castillo PA-C - Last Filed: 04/19/23 17:10> Constitutional Constitutional: Denies chills, Denies fatigue, Denies fever(s), Denies frequent falls, Denies lethargy and Denies weakness Eyes Eyes: Denies change in vision, Denies eye discharge, Denies irritation and Denies loss of vision ENT Ears, Nose, Mouth, and Throat: Denies change in voice, Denies dizziness, Reports otalgia, Denies neck pain, Denies sore throat and Denies throat swelling Cardiovascular Cardiovascular: Denies chest pain, Denies irregular heart rhythm, Denies lightheadedness, Denies palpitations, Denies dyspnea, Denies dyspnea on exertion and Denies orthopnea Respiratory Respiratory: Denies cough, Denies dyspnea, Denies dyspnea on exertion and Denies wheezing Gastrointestinal Gastrointestinal: Denies abdominal pain, Denies change in bowel habits, Denies diarrhea, Denies nausea and Denies vomiting Musculoskeletal Musculoskeletal: Denies neck pain and Denies numbness Integumentary/Breasts Skin/Breast: Denies pruritus, Denies erythema, Denies rash and Denies wounds Neurologic Neurologic: Denies behavioral changes, Denies confusion, Denies dizziness, Denies frequent falls, Denies loss of vision, Denies numbness and Denies weakness Psychiatric Psychiatric: Denies anxiety, Denies behavioral changes, Denies confusion, Denies depression, Denies homicidal ideation and Denies suicidal ideation Endocrine Endocrine: Denies fatigue, Denies flushing and Denies palpitations Hematologic/Lymphatic Hematologic/Lymphatic: Denies easy bruising Allergic/Immunologic Allergic/Immunologic: Denies urticaria, Denies throat swelling and Denies wheezing Patient History <Raymond Castillo PA-C - Last Filed: 04/19/23 17:10> Medical History Labral tear of shoulder Rotator cuff tear Hyperlipidemia Low back pain Cervical radiculopathy Osteoarthritis Lower leg edema Non-insulin dependent type 2 diabetes mellitus Surgical History Status post hernia repair Status post cervical discectomy Social History marital status: household members: spouse Smoking Status: Current some day smoker Smoking Status: Current some day smoker tobacco type: cigarettes alcohol intake frequency: other Substance Use Type: does not use Exam <Raymond Castillo PA-C - Last Filed: 04/19/23 17:10> Narrative Exam Narrative: Const General:?cooperative, healthy appearing and comfortable [facility] Head:?normal to inspection Ears:?hearing grossly normal bilaterally; left tympanum appears erythematous and bulging, right tympanum normal Nose:?external nose normal Face and sinus:?normal facial exam and sinuses nontender Mouth:?oral mucosae normal Throat:?posterior oropharynx normal Eyes General:?appearance normal, both eyes and all related structures Neck Neck:?normal visual inspection and no lymphadenopathy noted Resp Effort & Inspection:?normal respiratory effort Auscultation:?clear to auscultation bilaterally Cardio Rate:?regular rate Rhythm:?regular rhythm Neuro General:?patient alert, patient awake and patient oriented x3 Initial Vital Signs Initial Vital Signs: Vital Signs Temperature 98 F 04/19/23 16:45 Pulse Rate 73 04/19/23 16:45 Respiratory Rate 18 04/19/23 16:45 Blood Pressure 130/69 04/19/23 16:45 Pulse Oximetry 98 04/19/23 16:45 Oxygen Delivery Method Room Air 04/19/23 16:45 <Eric Diaz MD - Last Filed: 04/29/23 10:10> Initial Vital Signs Initial Vital Signs: Vital Signs Temperature 98 F 04/19/23 16:45 Pulse Rate 73 04/19/23 16:45 Respiratory Rate 18 04/19/23 16:45 Blood Pressure 130/69 04/19/23 16:45 Pulse Oximetry 98 04/19/23 16:45 Oxygen Delivery Method Room Air 04/19/23 16:45 Course <Raymond Castillo PA-C - Last Filed: 04/19/23 17:10> Vital Signs Vital signs: Vital Signs - 8 hr 04/19/23 16:45 Temperature 98 F Pulse Rate 73 Respiratory Rate 18 Blood Pressure 130/69 Pulse Oximetry 98 Oxygen Delivery Method Room Air <Eric Diaz MD - Last Filed: 04/29/23 10:10> Vital Signs Vital signs: Vital Signs - 8 hr 04/19/23 16:45 Temperature 98 F Pulse Rate 73 Respiratory Rate 18 Blood Pressure 130/69 Pulse Oximetry 98 Oxygen Delivery Method Room Air Medical Decision Making <Raymond Castillo PA-C - Last Filed: 04/19/23 17:10> MDM Narrative Additional Information: 63-year-old male presents to the ED with 2 days of left ear pain. Physical exam consistent with otitis media of the left ear. Antibiotics prescribed. Recommend follow-up with PCP. Recommend Tylenol, ibuprofen for symptoms. ED return precautions discussed with patient. Patient verbalized understanding. Medical records reviewed: Yes Discharge Plan Departure Patient Disposition: Home Clinical Impression: Otitis media Qualifiers: Otitis media type: unspecified Chronicity: acute Qualified Code(s): H66.90 - Otitis media, unspecified, unspecified ear Instructions: Middle Ear Infection Activity Restrictions/Additional Instructions: You were evaluated in the ED today for ear pain. It appears you have a infection of the left ear. You are being prescribed antibiotics for it. Please take it as prescribed. You may also take Tylenol and Advil for the discomfort. Please follow-up with your PCP as soon as possible. Return to the ED if you have worsening symptoms, fever, chills. Prescriptions: No Action doxycycline monohydrate 100 mg capsule 100 mg PO BID Qty: 14 0RF cephalexin 500 mg capsule 500 mg PO Q8H Qty: 21 0RF metformin 500 mg tablet 500 mg PO QID atorvastatin 80 mg tablet 80 mg PO DAILY hydrochlorothiazide 25 mg tablet 25 mg PO DAILY gabapentin [Neurontin] 600 mg tablet 600 mg PO QID Januvia 100 mg tablet 100 mg PO DAILY naproxen 500 mg tablet 500 mg PO DAILY Referrals: ProviderMadeleine [Primary Care Provider] - Stand Alone Forms: Patient Portal/API ED Sign-out <Eric Diaz MD - Last Filed: 04/29/23 10:10> Cosign ED Attending Cosignature Attestation: I was immediately available in the department for consultation. This documentation has been reviewed and I agree with assessment and plan. Supervised by Eric Diaz MD
== END 2023-04-19 17:07 | disposition home or self-care (01) ==
PROVIDERS: Emergency Provider Student in an Organized Health Care Education/Training Program
DX: H66.92 Otitis media, unspecified, left ear (principal)
CPT/HCPCS: 99281

== ENCOUNTER 2024-07-16 12:15 | Emergency (ER) | payer OTHER, SELFPAY ==
[2023-01-02 22:29] VITALS: BMI 29.9
[2024-07-16 12:26] VITALS: BP 138/65; PULSE 55; RESP 16; TEMP 36.9; O2SAT 98; BMI 30.4
--- NOTE | 2024-07-16 12:34 | ED.SKABFB ---
HPI - Skin/Abscess/Foreign Bdy General Chief complaint: Skin/Abscess/Foreign Body Stated complaint: poss infection in nose Time Seen by Provider: 07/16/24 12:34 Source: patient Mode of arrival: Ambulatory Limitations: no limitations History of Present Illness HPI narrative: This is a 64-year-old male, type 2 diabetic with a history of cellulitis and poorly controlled blood sugars presenting with concern for infection in his nose present for 2-3 weeks. Patient states he had some mild pain and irritation in his nose that has continued to worsen over the past 3 weeks despite using topical antibiotic ointment, triple antibiotic ointment OTC. He also has had about 2 weeks of pain in his forehead that feels like sinus pressure and congestion to him. He notes he has had a severe sinus infection previously. He states his A1c is 8.9 currently, he is starting Ozempic this week and has a regular appointment with his PCP on July 27. Denies any recent fevers chills nausea vomiting vision change or other symptoms. Related Data Home Medications Medication Instructions Recorded Confirmed atorvastatin 80 mg tablet 80 mg PO DAILY 05/02/19 01/03/23 gabapentin 600 mg tablet 600 mg PO QID 05/02/19 01/03/23 (Neurontin) hydrochlorothiazide 25 mg tablet 25 mg PO DAILY 05/02/19 01/03/23 metformin 500 mg tablet 500 mg PO QID 05/02/19 01/03/23 naproxen 500 mg tablet 500 mg PO DAILY 05/02/19 01/03/23 sitagliptin phosphate 100 mg 100 mg PO DAILY 05/02/19 01/03/23 tablet (Januvia) Previous Rx's Medication Instructions Recorded cephalexin 500 mg capsule 500 mg PO Q8H #21 caps 01/04/23 doxycycline monohydrate 100 mg 100 mg PO BID #14 caps 01/04/23 capsule doxycycline hyclate 100 mg capsule 100 mg PO BID bacterial sinusitis 07/16/24 10 days #20 caps mupirocin 2 % topical ointment 1 applic topical TID nasal 07/16/24 cellulitis 10 days #15 grams Allergies Allergy/AdvReac Type Severity Reaction Status Date / Time No Known Drug Allergies Allergy Verified 01/02/23 17:55 Review of Systems Review of Systems Narrative: See HPI Patient History Medical History Labral tear of shoulder Rotator cuff tear Hyperlipidemia Low back pain Cervical radiculopathy Osteoarthritis Lower leg edema Non-insulin dependent type 2 diabetes mellitus Surgical History Status post hernia repair Status post cervical discectomy Social History marital status: household members: spouse Smoking Status: Former smoker Smoking Status: Former smoker tobacco type: cigarettes alcohol intake frequency: other Exam Narrative Exam Narrative: GENERAL: [64] year old patient appears stated age. Well-developed patient, in mild distress. HEAD: Atraumatic. Normocephalic. EYES: Pupils equal round and reactive. Extraocular motions intact. No scleral icterus. No injection or drainage. ENT: Nose without bleeding, purulent drainage; there is erythema mild inflammation and crusting present at the left Nare; the distal septum and turbinates appear erythematous and inflamed on the left, nose is patent bilaterally. Throat without erythema, tonsillar hypertrophy or exudate. Airway patent. Bilateral ear canals normal in appearance, TMs pearly monte with cone of light visible. There is pain with palpation and percussion over the frontal sinuses bilaterally and slight maxillary sinus tenderness as well. NECK: Trachea midline. Non tender CARDIOVASCULAR: Regular rate and rhythm without murmurs, gallops, or rubs. RESPIRATORY: Clear to auscultation. Breath sounds equal bilaterally. No wheezes, rales, or rhonchi. EXTREMITIES: Moving all extremities, normal gait NEURO: AOx3. SKIN: No rash or erythema of visible areas Initial Vital Signs Initial Vital Signs: Vital Signs Temperature 98.4 F 07/16/24 12:26 Pulse Rate 55 L 07/16/24 12:26 Respiratory Rate 16 07/16/24 12:26 Blood Pressure 138/65 07/16/24 12:26 Pulse Oximetry 98 07/16/24 12:26 Oxygen Delivery Method Room Air 07/16/24 12:26 Course Vital Signs Vital signs: Vital Signs - 8 hr 07/16/24 12:26 Temperature 98.4 F Pulse Rate 55 L Respiratory Rate 16 Blood Pressure 138/65 Pulse Oximetry 98 Oxygen Delivery Method Room Air MDM - Skin/Abscess/Foreign Bdy Differential Diagnosis Differential diagnosis: Likely cellulitis and other (Sinusitis bacterial) Medical Records Attestation: I reviewed the patient's medical records. [facility] Narrative Medical decision making narrative: This is a 64-year-old male presenting with concern for nasal pain and redness for 2-3 weeks and sinus pressure headaches for 2 weeks. Patient is a poorly-controlled type 2 diabetic with an A1c of 8.9 and history of previous sinus infection. Exam of the Nare is concerning for a MRSA infection given location and appearance. His exam is also consistent with a bacterial sinusitis and history fits with this as well. He is prescribed doxycycline as this will cover both the sinus infection and cellulitis of the Nare. I feel that he does need oral antibiotics even for the cellulitis as mupirocin is unlikely to be completely effective given the extent of his inflammation/erythema. He is however prescribed mupirocin as well as doxycycline. Return precautions provided, follow-up plan discussed, all questions answered. Discharge Plan Departure Patient Disposition: Home Clinical Impression: Bacterial sinusitis, Cellulitis of nostril Activity Restrictions/Additional Instructions: *You have been diagnosed with [sinusitis and nasal cellulitis] *What to do: *Please continue to take your regular medications as directed. [2 ] New medication prescriptions sent to your pharmacy: [Doxycycline, mupirocin] [ ] New medication written as a paper prescription [ ] No new medications given *Please follow up with your primary care provider in 2-3 days, call for an appointment. Let them know you were seen in the Emergency Department and that we ask that you be seen in follow up. We will electronically transmit a record of today's note if your PCP is in our system. Ear exam today is concerning for a cellulitis of your nose, I also suspect you have a bacterial sinusitis given your frontal sinus pain. I have placed you on antibiotics for a 10 day course, doxycycline and also prescribed mupirocin which is usually effective for cellulitis of the nose. The doxycycline should also be effective for this. I hope you feel better soon. At your next PCP appointment on July 27 make sure you have your provider take a look in your nose and confirm improvement/resolution of symptoms. *If you do not have a primary care provider please contact the [facility] Resource line at [phone]. They will ask some questions about your medical history and help get you set up with a doctor in the community. *Return to Emergency Department if you should have any new, worsening or concerning symptoms, such as [fever greater than 101 F, shaking chills, worsening pain, persistent vomiting or other bothersome symptoms] Prescriptions: New mupirocin 2 % ointment 1 applic topical TID 10 Days Qty: 15 0RF doxycycline hyclate 100 mg capsule 100 mg PO BID 10 Days Qty: 20 0RF No Action doxycycline monohydrate 100 mg capsule 100 mg PO BID Qty: 14 0RF cephalexin 500 mg capsule 500 mg PO Q8H Qty: 21 0RF metformin 500 mg tablet 500 mg PO QID atorvastatin 80 mg tablet 80 mg PO DAILY hydrochlorothiazide 25 mg tablet 25 mg PO DAILY gabapentin [Neurontin] 600 mg tablet 600 mg PO QID Januvia 100 mg tablet 100 mg PO DAILY naproxen 500 mg tablet 500 mg PO DAILY Stand Alone Forms: Patient Portal/API/Survey
== END 2024-07-16 13:28 | disposition home or self-care (01) ==
PROVIDERS: Emergency Provider Student in an Organized Health Care Education/Training Program
DX: J32.8 Other chronic sinusitis (principal); J34.0 Abscess, furuncle and carbuncle of nose; Z87.891 Personal history of nicotine dependence
CPT/HCPCS: 99281

== ENCOUNTER → 2024-08-26 15:28 | Outpatient (CLI) | payer OTHER, SELFPAY ==
[2023-01-02 22:29] VITALS: BMI 29.9
--- NOTE | 2024-08-26 | DI.US.S_ITS ---
PROCEDURE: US HERNIA INDICATIONS: UNILATERAL HERNIA TECHNIQUE: Real-time focused scanning was performed of the inguinal region, with image documentation. COMPARISON: None. FINDINGS: Left inguinal hernia is seen containing fat. Abdominal wall defect measures at 2.2 x 2.5 cm. Hernia is partially reducible with compression. IMPRESSION: Partially reducible fat containing left inguinal hernia. Approved by: Mega Khoury M.D. on 08/27/2024 at 20:00
== END ==
LOC: US 15:33
PROVIDERS: PCP Family Medicine
DX: K40.30 Unilateral inguinal hernia, with obstruction, without gangrene, not specified as recurrent (principal)
CPT/HCPCS: 76705

== ENCOUNTER 2024-09-16 07:40 | Day surgery (SDC) | payer OTHER, SELFPAY ==
[2023-01-02 22:29] VITALS: BMI 29.9
[2024-09-07 10:25] VITALS: BMI 29.3
[2024-09-16] VITALS (7 sets, daily range): BP systolic 114–137; BP diastolic 60–75; PULSE 53–66; RESP 12–20; TEMP 36.2–37; O2SAT 98–100; BMI 29.3
[2024-09-16] MEDS: INSULIN REGULAR 100 UNIT/ML 3 ML VIAL IV ×2 (08:27→11:06)
[2024-09-16] MEDS: LACTATED RINGERS 1,000 ML 42 ML IV ×2 (08:30→10:30)
--- NOTE | 2024-09-16 09:42 | PM.PREOP ---
Pre-operative Note COVID-19 COVID-19 status: Not tested Interval Note History & Physical reviewed/Exam performed by Physician: Yes Changes to H&P: No ASA Class (for procedural sedation): II (CONTROLLED HYPERTENSION)
--- NOTE | 2024-09-16 10:08 | SUR.OPER ---
Supine on padded OR bed, head on pillow, arms secured on padded arm boards at <90 degrees abduction, legs uncrossed, safety belt at thigh, tape over blanket over lower legs.
[2024-09-16] MEDS: BUPIVACAINE 0.25% (PF) VIAL 30 ML INJ (10:30)
--- NOTE | 2024-09-16 10:49 | P.OP_ITS ---
Operative Date/Time/Diagnoses Date of procedure: 09/16/24 Time of procedure: 10:00 Pre-op diagnosis: Left inguinal hernia Post-op diagnosis: same Procedure & Clinicians Procedure: Left inguinal hernia repair Same procedure as scheduled: Yes Indications: Reducible left inguinal hernia Surgeon: Jayant Ceja [employer] Slitting Machine Operator: Alejo You Anesthesia Type: General Operative Notes Findings: Indirect left inguinal hernia Closure Type: primary Specimen(s): none sent Estimated Blood Loss (mL): 5 Blood products transfused: none Procedure in detail: After obtaining informed consent properly identifying the patient, the patient was transported to the operating room and was placed on the table in the supine position. The left was groin prepped and draped in the usual sterile manner. Time-out protocol was observed. A curvilinear incision of the 7 cm length was made in the skin of the left groin, overlying the left inguinal canal using surface landmarks with a 10 blade. This was carried down onto the external oblique aponeurosis with the electrocautery. Superficial epigastric veins were taken between ties of 0 silk. The external oblique was incised in line of its fibers from a point overlying the internal inguinal ring to the upper outer margin of the external inguinal ring. Spermatic cord was bluntly dissected free of the inguinal canal and a quarter-inch Ekta drain was passed about it for gentle retraction throughout the remainder of the operation. Ilioinguinal nerve and other cord structures were meticulously spared as the cord was skeletonized. An indirect hernial sac was identified and was dissected free of the spermatic cord using combination of sharp and blunt dissection to a point above the internal inguinal ring. The hernial sac was reduced and was retained in a reduced position by passage into the internal inguinal ring of a large PerFix plug. The plug was retained in place by imbricating the tissues at the margin of the internal inguinal ring into the open mouth of the plug. Next the pre cut patch was applied to the posterior wall of the inguinal canal. It was coapted to the soft tissues over the pubic tubercle, to the shelving edge of Poupart's ligament into the inferior margin of the transversus abdominis aponeurosis all with simple interrupted sutures of 0 Prolene. Spermatic cord was made to lie in the keyhole of the pre cut patch and the internal inguinal ring was reconstructed by coagulating the tails of the patch to 1 another lateral to the spermatic cord with a simple interrupted 0 Prolene stitch. The patch was made to lie flat deep to the external oblique aponeurosis which was then repaired with a running 0 Vicryl suture. Field blocks 0.5% Marcaine were instilled into the skin and subcutaneous tissues at the wound which was then closed with a series of inverted deep dermal 3-0 Vicryl sutures and Dermabond. A dressing was applied. The patient tolerated the procedure well and was transported to the recovery room extubated and awake. Complications: none Post-operative Condition: stable Disposition: PACU Plan for aftercare: Discharge to home when awake, alert and receiving adequate pain control.
[2024-09-16] MEDS: OXYCODONE IR 5 MG TABLET PO (11:27)
== END 2024-09-16 11:48 | disposition home or self-care (01) ==
PROVIDERS: PCP Family Medicine; Referring Provider Surgery; Visit Provider Surgery
PROC: (CPT 49505; principal; 2024-09-16 09:30)
DX: K40.90 Unilateral inguinal hernia, without obstruction or gangrene, not specified as recurrent (principal); Z87.891 Personal history of nicotine dependence
CPT/HCPCS: 49505; 82962; C1781; J1100; J2405; J2704; J3010; J3490

== ENCOUNTER → 2024-09-29 10:34 | Outpatient (CLI) | payer OTHER, SELFPAY ==
[2023-01-02 22:29] VITALS: BMI 29.9
--- NOTE | 2024-09-29 10:36 | DI.RAD.S_ITS ---
PROCEDURE: XR LUMBAR SPINE 2-3V INDICATIONS: BACK PAIN TECHNIQUE: 3 views of the lumbar spine were acquired. COMPARISON: Report from 05/08/2022. FINDINGS: Bones: 5 lan-pzd-cewlbth vertebrae are present. Convex left scoliosis centered at L2. There is grade 1 anterolisthesis of L4 on L5, L2 on L3. Facet arthrosis of L2 through S1. Mild disc height loss at all levels. Soft tissues: Overlying bowel gas pattern is normal. No suspicious soft tissue calcifications. IMPRESSION: Mild, multilevel degenerative disc disease and diffuse facet arthrosis. Grade 1 anterolisthesis of L4 on L5 and L2 on L3, likely due to facet arthrosis. Dictated by: Geo Argueta M.D. on 09/29/2024 at 16:50 Approved by: Geo Argueta M.D. on 09/29/2024 at 16:52
== END ==
PROVIDERS: PCP Family Medicine; Referring Provider Surgery; Visit Provider Surgery
DX: K40.90 Unilateral inguinal hernia, without obstruction or gangrene, not specified as recurrent (principal); M51.16 Intervertebral disc disorders with radiculopathy, lumbar region; M47.26 Other spondylosis with radiculopathy, lumbar region; M47.27 Other spondylosis with radiculopathy, lumbosacral region; M43.16 Spondylolisthesis, lumbar region; G89.29 Other chronic pain
CPT/HCPCS: 72100; 99213

== ENCOUNTER → 2024-10-03 18:48 | Outpatient (CLI) | payer OTHER, SELFPAY ==
[2023-01-02 22:29] VITALS: BMI 29.9
--- NOTE | 2024-10-03 18:52 | DI.MRI.S_ITS ---
PROCEDURE: MR LUMBAR SPINE WO CON INDICATIONS: back pain TECHNIQUE: Noncontrast sagittal T1 spin echo and T2 fast echo, sagittal STIR, and T2 fast spin echo through the lumbar spine. In cases with scoliosis, additional coronal T2 fast spin echo may be performed. COMPARISON: [facility], MR, MR LUMBAR SPINE WO CON, 05/08/2022, 16:29. [facility], CR, XR LUMBAR SPINE 2-3V, 09/29/2024, 10:30. [facility], MR, MR PELVIS WO CON, 10/03/2024, 18:56. FINDINGS: Image quality: Excellent. Alignment and Curvature: Mild levoconvex scoliotic curvature is noted. Mild grade 1 anterolisthesis is seen at the L2-L3 and L4-L5 levels. Bone Marrow: Marrow is of normal overall signal. No acute vertebral body compression fractures. Spinal Cord: Conus medullaris terminates at the L1 level. Visualized cord demonstrates normal signal and size. Paraspinous Soft Tissues: No paravertebral masses. T12-L1: No significant abnormality is seen. L1-L2: The disc height and disk signal are relatively well-preserved. Mild generalized disc bulge is seen. There is a superimposed central disc protrusion. Mild to moderate facet hypertrophy can be seen. There is moderate left-sided and at least moderate right-sided neural foraminal narrowing. Mild to moderate central canal narrowing is seen. When comparison is made with the prior images, these findings are similar. L2-L3: [id number]-[id number] loss of disc height and disc signal can be seen. Moderate disc bulge is seen, which is eccentric to the right. There is a mild central disc extrusion, with superior migration of the disc material. At least moderate facet hypertrophy is seen. Associated hypertrophy of the ligamentum flavum can be seen. There is moderate left-sided neural foraminal narrowing. Moderate to severe right-sided neural foraminal narrowing is seen, with a degree of compression upon the exiting right L2 nerve root. Moderate to severe central canal narrowing is seen, as on series 6, image 16. These imaging findings have progressed compared to the prior study. L3-L4: The disc height and disk signal are well-preserved. Mild generalized disc bulge is seen. Mild facet joint hypertrophy is seen. There is yoiy-xd-[id number] left- sided and mild right-sided neural foraminal narrowing. Mild to moderate central canal narrowing is seen. When comparison is made with the prior images, these findings are similar. L4-L5: The disc height is well-preserved. Loss of disc signal is seen at this level. Moderate generalized disc bulge is seen. There is a superimposed central disc protrusion. Moderate to prominent facet hypertrophy is seen. There is mild right-sided and at least moderate left-sided neural foraminal narrowing. Moderate to severe central canal narrowing is seen, as on series 6, image 27. There is slight progression compared to the prior. L5-S1: Mild loss of disc height is seen. Loss of disc signal is seen. Mild to moderate disc bulge is seen, which is eccentric to the right. There is a superimposed central disc protrusion. Mild to moderate facet hypertrophy is seen. There is moderate left-sided and no right-sided neural foraminal narrowing. Mild to moderate central canal narrowing is seen. When comparison is made with the prior images, these findings are similar. IMPRESSION: Multiple levels of lumbar spine degenerative change can be seen, which are worst at L2-L3 and L4-L5. The degenerative changes are overall progressed compared to 2022. Dictated by: Geovanni Stewart M.D. on 10/04/2024 at 10:44 Approved by: Geovanni Stewart M.D. on 10/04/2024 at 10:49
--- NOTE | 2024-10-03 18:52 | DI.MRI.S_ITS ---
PROCEDURE: MR PELVIS WO CON INDICATIONS: back pain - sacrum pain TECHNIQUE: Noncontrast axial and oblique coronal T1 spin echo and STIR through the sacroiliac joints. COMPARISON: None. FINDINGS: Image quality: Excellent. Bones: Osteoarthritic changes are noted involving bilateral sacroiliac joint with joint space narrowing and subchondral sclerosis. There is mild edema involving lateral left sacrum and medial left iliac bone adjacent to anterior aspect of upper to mid left sacroiliac joint concerning for active sacroiliitis. No bony ankylosis. No suspicious marrow space occupying lesions. Soft tissues: No presacral masses. Rectum appears normal in caliber and wall thickness. No pathologic free pelvic fluid. IMPRESSION: 1. Mild bilateral sacroiliac joint osteoarthritic changes with finding concerning for active sacroiliitis involving anterior portion of left upper to mid sacroiliac joint as described above. No ankylosis. No definite bony erosion. No fracture or dislocation. 2. No sacral soft tissue abnormalities. Dictated by: Lucas Mcclendon M.D. on 10/04/2024 at 14:57 Approved by: Lucas Mcclendon M.D. on 10/04/2024 at 14:59
== END ==
LOC: MRI 18:50
PROVIDERS: PCP Family Medicine; Referring Provider Surgery; Visit Provider Surgery
DX: M54.30 Sciatica, unspecified side (principal); M47.816 Spondylosis without myelopathy or radiculopathy, lumbar region; M47.817 Spondylosis without myelopathy or radiculopathy, lumbosacral region; M47.818 Spondylosis without myelopathy or radiculopathy, sacral and sacrococcygeal region; M54.9 Dorsalgia, unspecified
CPT/HCPCS: 72148; 72195

== ENCOUNTER 2024-10-28 19:18 | Emergency (ER) | payer OTHER, SELFPAY ==
[2023-01-02 22:29] VITALS: BMI 29.9
[2024-10-28 19:40] VITALS: BP 115/58; PULSE 65; RESP 16; TEMP 36.6; O2SAT 98
--- NOTE | 2024-10-28 20:00 | DI.RAD.S_ITS ---
PROCEDURE: XR FEMUR RT MIN 2V INDICATIONS: Fall on 10/21/24, pain and difficulty walking, previous hip fx TECHNIQUE: 2 views of the femur were acquired. COMPARISON: [facility], CR, XR HIP W PEL RT 2V, 10/28/2024, 20:04. FINDINGS: Bones: No fractures or dislocations. No suspicious bony lesions. Moderate to severe hip arthritic change with calcific tendinitis. Severe arthritic changes are present the knee. Soft tissues: No suspicious soft tissue calcifications or masses. IMPRESSION: No visualized acute fracture or dislocation. However, if clinical concern and/or pain persist, short interval imaging followup in 7-10 days is recommended, as occult injury cannot be definitively excluded. Dictated by: Genie Anthony M.D. on 10/28/2024 at 21:06 Approved by: Genie Anthony M.D. on 10/28/2024 at 21:06
--- NOTE | 2024-10-28 20:00 | DI.RAD.S_ITS ---
PROCEDURE: XR HIP W PEL IF DONE RT 2V INDICATIONS: Fall on 10/21/24, pain and difficulty walking, previous hip fx TECHNIQUE: AP pelvis with lateral view(s) of the right hip(s). COMPARISON: [facility], , XR FEMUR RT MIN 2V, 10/28/2024, 20:04. FINDINGS: Bones: No fractures or dislocations. Pelvic ring appears intact. No suspicious bony lesions. Moderate to severe bilateral hip arthritic change. Degenerative changes are present within the lower lumbar spine. Soft tissues: The visualized bowel gas pattern is normal. No suspicious soft tissue calcifications. IMPRESSION: No visualized acute fracture or dislocation. However, if clinical concern and/or pain persist, short interval imaging followup in 7-10 days is recommended, as occult injury cannot be definitively excluded. Dictated by: Genie Anthony M.D. on 10/28/2024 at 21:07 Approved by: Genie Anthony M.D. on 10/28/2024 at 21:07
--- NOTE | 2024-10-28 20:00 | DI.RAD.S_ITS ---
PROCEDURE: XR LUMBAR SPINE 2-3V INDICATIONS: Fall on 10/21/24, pain and difficulty walking, previous hip fx TECHNIQUE: 3 views of the lumbar spine were acquired. COMPARISON: [facility], , XR LUMBAR SPINE 2-3V, 09/29/2024, 10:30. FINDINGS: Bones: 5 xyx-wyi-bwfmqzq vertebrae are present. There is trace anterolisthesis L4. Multilevel degenerative changes including prominent disc and foraminal narrowing at L5-S1. No vertebral body compression fractures. No suspicious bony lesions. Soft tissues: Overlying bowel gas pattern is normal. No suspicious soft tissue calcifications. IMPRESSION: Stable interval degenerative changes. No visualized acute fracture or dislocation. However, if clinical concern and/or pain persist, short interval imaging followup in 7-10 days is recommended, as occult injury cannot be definitively excluded. Dictated by: Genie Anthony M.D. on 10/28/2024 at 21:07 Approved by: Genie Anthony M.D. on 10/28/2024 at 21:08
--- NOTE | 2024-10-28 20:50 | ED.LOWEXIN ---
HPI - Extremity Injury (Lower) General Chief Complaint: Extremity Problem,Nontraumatic Stated Complaint: RT lower back,hip,leg pain Time Seen by Provider: 10/28/24 19:25 Source: patient Mode of arrival: Family Vehicle History of Present Illness HPI Narrative: 64-year-old gentleman history of type 2 diabetes, presents with right-sided back and hip pain that he has been dealing with chronically for the past few months. His MRI of the pelvis was done recently showing mild bilateral sacroiliac joint osteoarthritis findings concerning for active sacroiliitis involving anterior portion of the left upper to mid SI joint as described no ankylosis no bony erosion no fracture or dislocation and no sacral soft tissue abnormality. Patient said he had a mechanical fall on October 21 and aggravated the pain and has been taking cannabis like chewables along with ibuprofen which helps numb the pain but then it comes back right away. Other than what is stated 14 point review of system is negative Related Data Home Medications ?Medication ?Instructions ?Recorded ?Confirmed atorvastatin 80 mg tablet 80 mg PO DAILY 05/02/19 09/29/24 gabapentin 600 mg tablet 600 mg PO QID 05/02/19 09/29/24 (Neurontin) metformin 500 mg tablet 500 mg PO QID 05/02/19 09/29/24 lisinopril 5 mg tablet 5 mg PO DAILY 08/31/24 09/29/24 semaglutide 0.25 mg or 0.5 mg (2 0.25 mg SUBCUT QWEEK 08/31/24 09/29/24 mg/3 mL) subcutaneous pen injector (Ozempic) Previous Rx's ?Medication ?Instructions ?Recorded hydrocodone 5 mg-acetaminophen 325 1 tab PO Q6H PRN pain #30 tabs 09/16/25 mg tablet hydrocodone 5 mg-acetaminophen 325 1 tab PO Q6H PRN pain #30 tabs 09/22/25 mg tablet oxycodone 10 mg tablet 10 mg PO Q8H PRN pain #30 tabs 09/30/24 hydrocodone 5 mg-acetaminophen 325 1 tab PO Q4-6H PRN pain #20 tabs 10/28/24 mg tablet Allergies Allergy/AdvReac Type Severity Reaction Status Date / Time No Known Drug Allergies Allergy Verified 10/28/24 19:54 Review of Systems Review of Systems ROS Unobtainable: All systems reviewed & are unremarkable except as noted in HPI and below Patient History Medical History Labral tear of shoulder Rotator cuff tear Hyperlipidemia Low back pain Cervical radiculopathy Osteoarthritis Lower leg edema Non-insulin dependent type 2 diabetes mellitus Surgical History Status post hernia repair Status post cervical discectomy Social History marital status: household members: spouse lives independently: Yes occupational status: employed alcohol intake: former substance use type: does not use tobacco type: cigarettes alcohol intake frequency: other Exam Narrative Exam Narrative: GENERAL: [64] year old patient appears stated age. Well-developed patient, in mild distress. HEAD: Atraumatic. Normocephalic. EYES: Pupils equal round and reactive. Extraocular motions intact. No scleral icterus. No injection or drainage. ENT: Nose without bleeding, purulent drainage. Throat without erythema, tonsillar hypertrophy or exudate. Airway patent. NECK: Trachea midline. Non tender EXTREMITIES: No edema or joint tenderness. Right lumbosacral L4 L5-S1 but no midline tenderness to palpation CT L-spine motor sensory intact +2 DP +2 PT cap refill less than 2 seconds in the right lower extremity BACK: Nontender without deformity or crepitance. No flank tenderness. NEURO: AOx3. SKIN: No rash or erythema of visible areas Initial Vital Signs Initial Vital Signs: Vital Signs Temperature 97.8 F 10/28/24 19:40 Pulse Rate 65 10/28/24 19:40 Respiratory Rate 16 10/28/24 19:40 Blood Pressure 115/58 L 10/28/24 19:40 Pulse Oximetry 98 10/28/24 19:40 Oxygen Delivery Method Room Air 10/28/24 19:40 [place] [facility] [place] Procedure: Steroid trigger point injection using 22-1-1/2 gauge needle with 5 cc syringe consisting of 4 mL of 2% lidocaine without epi and 1 mL of Kenalog 40 mg injected into L4-L5 S1 right-sided paralumbar sacral region for which patient tolerated procedure without any complication. Side (if applicable): right Location: R L4-5 S1 paralumbosacral region Time out performed: Yes (Confirm side procedure name and date of patient) Technique/Description of procedure performed: Steroid trigger point injection Patient tolerated procedure: Well Complications: none Course Orders Ordered: ED Orders 10/28/24 20:00 XR femur RT min 2V Stat XR hip w pel RT 2V Stat XR lumbar spine 2-3V Stat Discontinued Medications Hydrocodone Bitart/Acetaminophen (Hydrocodone/Acet 5/325 Tablet) 1 tab PO NOW ONE Stop: 10/28/24 21:00 Last Admin: 10/28/24 21:20 Dose: 1 tab Documented By: TERRENCE Ketorolac Tromethamine (Ketorolac 30 Mg/Ml Vial) 30 mg IM NOW ONE Stop: 10/28/24 21:00 Last Admin: 10/28/24 21:20 Dose: 30 mg Documented By: TERRENCE Lidocaine HCl (Lidocaine 2% Inj Mdv 20ml) 20 ml INJ INTRA-OP ONE Stop: 10/28/24 21:00 Last Admin: 10/28/24 21:20 Dose: 20 ml Documented By: TERRENCE Triamcinolone (Triamcinolone 40 Mg/Ml Vial) 40 mg INJ NOW ONE Stop: 10/28/24 21:00 Last Admin: 10/28/24 21:19 Dose: 40 mg Documented By: TERRENCE Vital Signs Vital signs: Vital Signs - 8 hr 10/28/24 22:38 Pulse Rate 60 Respiratory Rate 18 Blood Pressure 130/70 Pulse Oximetry 98 Oxygen Delivery Method Room Air MDM - Extremity Injury (Lower) MDM Narrative Medical decision making narrative: Vital signs, nurse triage note, medication list, previous ER visits, and all imaging studies reviewed. Patient given trigger point injection here for which he tolerated with no difficulty and had some relief with the pain. Differential diagnosis includes osteoarthritis SI dysfunction piriformis syndrome sciatica spondylolysis spondylolisthesis. DC home on [place] rx follow up with PCP and or pain management. Discharge Plan Departure Patient Disposition: Home Clinical Impression: Sacroiliitis Instructions: DI Sacroiliac Joint Dysfunction Activity Restrictions/Additional Instructions: Return with new or. worsening symptoms. Follow up with PCP and/or chronic pain management in 1-2 weeks for re-evaluation. Prescriptions: New hydrocodone-acetaminophen 5-325 mg tablet 1 tab PO Q4-6H PRN (Reason: pain) Qty: 20 0RF No Action hydrocodone-acetaminophen 5-325 mg tablet 1 tab PO Q6H PRN (Reason: pain) Qty: 30 0RF oxycodone 10 mg tablet 10 mg PO Q8H PRN (Reason: pain) Qty: 30 0RF lisinopril 5 mg tablet 5 mg PO DAILY Ozempic 0.25 mg or 0.5 mg (2 mg/3 mL) pen injector 0.25 mg SUBCUT QWEEK Rx Instructions: for 4 weeks hydrocodone-acetaminophen 5-325 mg tablet 1 tab PO Q6H PRN (Reason: pain) Qty: 30 0RF metformin 500 mg tablet 500 mg PO QID atorvastatin 80 mg tablet 80 mg PO DAILY gabapentin [Neurontin] 600 mg tablet 600 mg PO QID Referrals: Nathan Aviles DO [Primary Care Provider, Family Practice] Stand Alone Forms: Patient Portal/API
[2024-10-28] MEDS: TRIAMCINOLONE 40 MG/ML VIAL INJ (21:19)
[2024-10-28] MEDS: HYDROCODONE/ACET 5/325 TABLET 1 TAB PO (21:20)
[2024-10-28] MEDS: LIDOCAINE 2% INJ MDV 20ML 20 ML INJ (21:20)
[2024-10-28] MEDS: KETOROLAC 30 MG/ML VIAL IM (21:20)
[2024-10-28 22:38] VITALS: BP 130/70; PULSE 60; RESP 18; O2SAT 98
== END 2024-10-28 22:39 | disposition home or self-care (01) ==
PROVIDERS: Emergency Provider Family Medicine; PCP Family Medicine
DX: M46.1 Sacroiliitis, not elsewhere classified (principal)
CPT/HCPCS: 20552; 72100; 73502; 73552; 96372; 99283; 99284; J1885

== ENCOUNTER 2024-11-26 16:30 | Emergency (ER) | payer OTHER, SELFPAY ==
[2023-01-02 22:29] VITALS: BMI 29.9
[2024-11-26 16:36] VITALS: BP 116/65; PULSE 80; RESP 20; TEMP 36.6; O2SAT 96; BMI 27.2
--- NOTE | 2024-11-26 16:45 | ED_ITS ---
HPI - Back Pain/Injury General Chief Complaint: Back Pain/Injury Stated Complaint: sciatic nerve severe pain right sided Time Seen by Provider: 11/26/24 16:36 History of Present Illness HPI Narrative: 64-year-old gentleman with a history of diabetes, peripheral neuropathy, hyperlipidemia, hypertension and chronic back pain with significant right-sided radiculopathy. Comes in today complaining of worsening of his chronic back pain. He describes his pain currently as a 9/10. He has had significant workup over the last number of months and does have a referral in process for a ortho spine surgeon. Much of his care has been through the [place] and the [facility] he is on the last 2 days of that taper. He did notice some modest benefit with the initial couple of days. He was seen in the emergency department here on October 28 with workup done and trial of a steroid trigger point injection which was only minimally effective. Patient describes pain in the right hip as if somebody hit him with a baseball bat on that side. The right-sided back pain radiates into the anterior portion of the thigh and inner portion of the thigh. He is not complaining of lower leg pain. He is not having fevers or chills. This is an exacerbation of his already present pain with no new findings. There has been no new trauma. He is not complaining of any abdominal pain, weakness in the leg, no stool or urine symptoms. No saddle anesthetic. Related Data Home Medications ?Medication ?Instructions ?Recorded ?Confirmed atorvastatin 80 mg tablet 80 mg PO DAILY 05/02/1909/18 gabapentin 600 mg tablet 600 mg PO QID 05/02/1909/29 (Neurontin) metformin 500 mg tablet 500 mg PO QID 05/02/1909/29 lisinopril 5 mg tablet 5 mg PO DAILY 08/31/2409/29 semaglutide 0.25 mg or 0.5 mg (2 0.25 mg SUBCUT QWEEK 08/31/24 09/29/24 mg/3 mL) subcutaneous pen injector (Ozempic) Previous Rx's ?Medication ?Instructions ?Recorded hydrocodone 5 mg-acetaminophen 325 1 tab PO Q6H PRN pa in #30 tabs 09/16/24 mg tablet hydrocodone 5 mg-acetaminophen 325 1 tab PO Q6H PRN pa in #30 tabs 09/22/25 mg tablet oxycodone 10 mg tablet 10 mg PO Q8H PRN pain #30 ta bs 09/30/24 hydrocodone 5 mg-acetaminophen 325 1 tab PO Q4-6H PRN pain #20 tabs 10/28/ mg tablet hydrocodone 5 mg-acetaminophen 325 1 tab PO BEDTIME TX N pain #30 tabs 11/26/ mg tablet Allergies Allergy/AdvReac Type Severity Reaction Status Date / Time No Known Drug Allergies Allergy Verified 11/26/24 16:36 Review of Systems Review of Systems Narrative: Pertinent positive and negative findings as per HPI Patient History Medical History Labral tear of shoulder Rotator cuff tear Hyperlipidemia Low back pain Cervical radiculopathy Osteoarthritis Lower leg edema Non-insulin dependent type 2 diabetes mellitus Surgical History Status post hernia repair Status post cervical discectomy Social History marital status: household members: spouse lives independently: Yes occupational status: employed Smoking Status: Never smoker alcohol intake: former substance use type: does not use Smoking Status: Never smoker tobacco type: cigarettes alcohol intake frequency: other Exam Initial Vital Signs Initial Vital Signs: Vital Signs Temperature 97.9 F 11/26/24 16:36 Pulse Rate 80 11/26/24 16:36 Respiratory Rate 20 11/26/24 16:36 Blood Pressure 116/65 11/26/24 16:36 Pulse Oximetry 96 11/26/24 16:36 Oxygen Delivery Method Room Air 11/26/24 16:36 General: Alert appropriate in no acute distress Respiratory: Able to speak in full sentences, no obvious respiratory distress Skin: No obvious rashes, warm and dry Neurologic: Grossly intact no obvious asymmetries or abnormalities Psych: appropriate insight and affect, cooperative Extremity: He is able to walk with a minimally antalgic gait. Describes decreased sensation over the right anterior thigh. There is no muscle wasting appreciated. He has tenderness over the lateral aspect of the right lumbar spine with some minor spasm appreciated. Spasm into the upper buttock. No obvious abscess, significantly increased tenderness or redness appreciated over the sacroiliac joints Course Orders Ordered: Discontinued Medications Hydrocodone Bitart/Acetaminophen (Hydrocodone/Acet 5/325 Tablet) 2 tab PO NOW ONE Stop: 11/26/24 16:46 Last Admin: 11/26/24 17:10 Dose: 2 tab Documented By: STUART Vital Signs Vital signs: Vital Signs - 8 hr 11/26/24 16:36 Temperature 97.9 F Pulse Rate 80 Respiratory Rate 20 Blood Pressure 116/65 Pulse Oximetry 96 Oxygen Delivery Method Room Air MDM - Back Pain/Injury MDM Narrative Medical decision making narrative: 64-year-old gentleman with chronic low back pain with acute exacerbation. No evidence of trauma, infection, cauda equina syndrome, I do not suspect epidural abscess. To date, recent imaging has included -lumbar spine MRI October 03, 2024 with multiple levels of lumbar spine degenerative changes worse at L2-3 and L4-5. Degenerative changes are overall progressed compared to 2022. -pelvic MRI October 03, 2024 Osteoarthritic changes are noted involving bilateral sacroiliac joint with joint space narrowing and subchondral sclerosis. There is mild edema involving lateral left sacrum and medial left iliac bone adjacent to anterior aspect of upper to mid left sacroiliac joint concerning for active sacroiliitis. No bony ankylosis. No suspicious marrow space occupying lesions. -femur x-ray October 28 no fractures or dislocation -hip x-ray October 28 no fractures or dislocation -lumbar spine x-rays October 28 show stable interval degenerative changes with no acute fractures or dislocations appreciated There are no acute findings that require additional workup at this time. Patient is given copies of all of his most recent imaging studies described above. He currently finds that liquid Motrin and Vicodin has been most helpful for pain control. He was given hydrocodone 09/22 #30, 09/11 #30, 10/28 #20 He is currently completing a steroid taper. He has a referral for spine consultation upcoming He is given 2 hydrocodone in the emergency department. I gave him an additional prescription for 20. Along with discussion of minimal use of narcotics in the setting of chronic pain. Did ask him to follow up on the orthopedic referral. At this point there is no indication for further imaging or workup and he is safe for discharge Discharge Plan Departure Patient Disposition: Home Clinical Impression: Acute exacerbation of chronic low back pain Instructions: DI for Back Pain With Sciatica Activity Restrictions/Additional Instructions: I am sorry that you are continuing to suffer with this back pain. It sounds like you are doing all of the right things and the next step in your diagnosis and truly getting to better management of your pain is to follow up with the orthopedic referral In the meantime, I have given you an additional prescription for 20 tablets of hydrocodone. This is a narcotic can be addictive and should be used sparingly for acute pain only. It tends to be ineffective and caused significant problems when used for chronic pain I have given you print accompanies of the most recent imaging studies done here at [facility] If you have fevers, abdominal pain find that you are developing worsening weakness that is not related to pain or have new findings please do feel free to return to the emergency department Prescriptions: New hydrocodone-acetaminophen 5-325 mg tablet 1 tab PO BEDTIME PRN (Reason: pain) Qty: 30 0RF No Action hydrocodone-acetaminophen 5-325 mg tablet 1 tab PO Q6H PRN (Reason: pain) Qty: 30 0RF oxycodone 10 mg tablet 10 mg PO Q8H PRN (Reason: pain) Qty: 30 0RF lisinopril 5 mg tablet 5 mg PO DAILY Ozempic 0.25 mg or 0.5 mg (2 mg/3 mL) pen injector 0.25 mg SUBCUT QWEEK Rx Instructions: for 4 weeks hydrocodone-acetaminophen 5-325 mg tablet 1 tab PO Q6H PRN (Reason: pain) Qty: 30 0RF hydrocodone-acetaminophen 5-325 mg tablet 1 tab PO Q4-6H PRN (Reason: pain) Qty: 20 0RF metformin 500 mg tablet 500 mg PO QID atorvastatin 80 mg tablet 80 mg PO DAILY gabapentin [Neurontin] 600 mg tablet 600 mg PO QID Referrals: Nathan Aviles DO [Primary Care Provider, Family Practice] Stand Alone Forms: Patient Portal/API
[2024-11-26] MEDS: HYDROCODONE/ACET 5/325 TABLET 2 TAB PO (17:10)
== END 2024-11-26 17:12 | disposition home or self-care (01) ==
PROVIDERS: Emergency Provider Emergency Medicine; PCP Family Medicine
DX: M54.50 Low back pain, unspecified (principal)
CPT/HCPCS: 99283

== ENCOUNTER 2025-01-23 15:02 | Emergency (ER) | payer OTHER, SELFPAY ==
[2023-01-02 22:29] VITALS: BMI 29.9
[2025-01-23] VITALS (7 sets, daily range): BP systolic 129–148; BP diastolic 69–78; PULSE 64–78; RESP 16; TEMP 36.1; O2SAT 95–100; BMI 28.5
--- NOTE | 2025-01-23 15:20 | ED_ITS ---
<Statement entered by Clyde Darby, DO - 01/23/25 23:35> Co-sign statement: I was available for consultation during this patient's emergency department visit. This chart is being signed by myself for administrative purposes only. I do not have direct contact with this patient during this visit. They were seen independently by the [facility]. HPI - Extremity Problem General Chief complaint: Extremity Problem,Nontraumatic Stated complaint: Lt hip/leg/back pain x few months Time Seen by Provider: 01/23/25 15:20 Source: patient Mode of arrival: Ambulatory History of Present Illness HPI Narrative: Mr. Solis is a pleasant 64-year-old gentleman with a past medical history of chronic low back pain, [id number] type 2 diabetes, hyperlipidemia, hypertension, peripheral neuropathy presents to the emergency department for acute on chronic exacerbation of his low back pain radiating to the right leg x1 week. Patient has been struggling with low back and right hip pain/right leg pain for some time, he had MRI in September, x-rays and October after a fall. He is currently in the waiting process for an appointment with [facility]. He occasionally has acute on chronic flares of his right lumbar radiculopathy, [facility] [place], we will not prescribe him opioids which is what causes him to come to the ER for breakthrough pain management. States that the only medications that have helped him in the past are Toradol and Vicodin. He did have a trip and fall 3 weeks ago landing on the right hip, he was able to ambulate after that time and did not have severe pain immediately but over the last week his pain has gotten worse. He denies any fevers, chills, numbness, tingling, weakness that is changed outside of his baseline peripheral neuropathy. No bowel or bladder incontinence or retention. No saddle anesthesia. No IV drug use. He is here with his to drive him home. Related Data Home Medications ?Medication ?Instructions ?Recorded ?Confirmed atorvastatin 80 mg tablet 80 mg PO DAILY 05/02/1909/18 gabapentin 600 mg tablet 600 mg PO QID 05/02/1909/29 (Neurontin) metformin 500 mg tablet 500 mg PO QID 05/02/1909/29 lisinopril 5 mg tablet 5 mg PO DAILY 08/31/2409/29 semaglutide 0.25 mg or 0.5 mg (2 0.25 mg SUBCUT QWEEK 08/31/24 09/29/24 mg/3 mL) subcutaneous pen injector (Ozempic) Previous Rx's ?Medication ?Instructions ?Recorded hydrocodone 5 mg-acetaminophen 325 1 tab PO Q6H PRN pa in #30 tabs 09/16/ mg tablet hydrocodone 5 mg-acetaminophen 325 1 tab PO Q6H PRN pa in #30 tabs 09/22/24 mg tablet oxycodone 10 mg tablet 10 mg PO Q8H PRN pain #30 ta bs 09/30/24 hydrocodone 5 mg-acetaminophen 325 1 tab PO Q4-6H PRN pain #20 tabs 10/28/24 mg tablet hydrocodone 5 mg-acetaminophen 325 1 tab PO BEDTIME AR N pain #30 tabs 11/26/24 mg tablet hydrocodone 5 mg-acetaminophen 325 1 tab PO Q4-6H PRN pain #12 tabs 01/23/25 mg tablet Allergies Allergy/AdvReac Type Severity Reaction Status Date / Time No Known Drug Allergies Allergy Verified 01/23/25 15:13 Review of Systems Review of Systems ROS Unobtainable: All systems reviewed & are unremarkable except as noted in HPI and below Patient History Medical History Labral tear of shoulder Rotator cuff tear Hyperlipidemia Low back pain Cervical radiculopathy Osteoarthritis Lower leg edema Non-insulin dependent type 2 diabetes mellitus Surgical History Status post hernia repair Status post cervical discectomy Social History marital status: household members: spouse lives independently: Yes occupational status: employed Smoking Status: Former smoker alcohol intake: former substance use type: does not use Smoking Status: Former smoker tobacco type: cigarettes alcohol intake frequency: other Exam Narrative Exam Narrative: GENERAL: 64 year old patient appears stated age. Well-developed patient, in no acute distress. HEAD: Atraumatic. Normocephalic. EYES: No scleral icterus. No injection or drainage. NECK: Trachea midline. Cervical ROM intact. CARDIOVASCULAR: Regular rate RESPIRATORY: ?Nonlabored respirations. ?Speaking in clear, full sentences. ? EXTREMITIES: No LE edema. 2+ BL PT pulses palpable. Sensation to light touch intact in bilateral lower extremities, equal. BACK: No midline spinal tenderness. Patient has subjective pain in the right SI region that radiates down the right lateral thigh with straight leg raise. NEURO: AOx3. ?Clear speech. ? SKIN: No rash or erythema of visible areas Initial Vital Signs Initial Vital Signs: Vital Signs Pulse Rate 78 01/23/25 15:09 Blood Pressure 148/73 H 01/23/25 15:09 Pulse Oximetry 98 01/23/25 15:09 Course Orders Ordered: ED Orders 01/23/25 15:33 XR hip w pel RT 2V Stat Discontinued Medications Hydrocodone Bitart/Acetaminophen (Hydrocodone/Acet 5/325 Tablet) 1 tab PO NOW ONE Stop: 01/23/25 15:34 Last Admin: 01/23/25 15:43 Dose: 1 tab Ketorolac Tromethamine (Ketorolac 30 Mg/Ml Vial) 30 mg IM NOW ONE Stop: 01/23/25 15:34 Last Admin: 01/23/25 15:44 Dose: 30 mg Vital Signs Vital signs: Vital Signs - 8 hr 01/23/25 15:09 01/23/25 15:09 01/23/25 15:13 Temperature 97.0 F L Pulse Rate 78 77 Respiratory Rate 16 Blood Pressure 148/73 H 148/73 H Pulse Oximetry 98 100 Oxygen Delivery Method Room Air 01/23/25 15:30 01/23/25 15:35 01/23/25 15:35 Temperature Pulse Rate 74 72 Respiratory Rate 16 Blood Pressure 138/72 Pulse Oximetry 97 97 Oxygen Delivery Method 01/23/25 16:06 01/23/25 16:07 01/23/25 16:07 Temperature Pulse Rate 69 Respiratory Rate Blood Pressure 135/78 Pulse Oximetry 96 95 Oxygen Delivery Method 01/23/25 16:30 01/23/25 16:30 Temperature Pulse Rate 64 Respiratory Rate 16 Blood Pressure 129/69 Pulse Oximetry 96 Oxygen Delivery Method MDM - Extremity (Nontraumatic) Medical Records Attestation: I reviewed the patient's medical records. Imaging Data Right Hip & Pelvis XR: Radiologist's Impression: PROCEDURE: XR HIP W PEL IF DONE RT 2V INDICATIONS: R hip pain; fall 3 weeks ago TECHNIQUE: AP pelvis with lateral view(s) of the right hip(s). COMPARISON: [facility], [facility], XR HIP W PEL RT 2V, 10/28/2024, 20:04. FINDINGS: Bones: No fractures or dislocations. Pelvic ring appears intact. No suspicious bony lesions. Moderate bilateral hip degenerative changes. Soft tissues: The visualized bowel gas pattern is normal. No suspicious soft tissue calcifications. IMPRESSION: No acute bony abnormality. Moderate bilateral hip degenerative changes. If symptoms persist with conservative management, consider cross-sectional imaging such as CT or MRI. Approved by: Amy Alejandro M.D.,Ph.D. on 01/23/2025 at 16:49 MDM Narrative Medical decision making narrative: 64-year-old gentleman with a past medical history of chronic low back pain, [id number] type 2 diabetes, hyperlipidemia, hypertension, peripheral neuropathy presents to the emergency department for acute on chronic exacerbation of his low back pain radiating to the right leg x1 week. Differential diagnosis includes but is not limited to sacroiliitis, lumbar radiculopathy, hip fracture, acute on chronic pain, degenerative disc disease, spinal stenosis, etc. On exam patient is in no acute distress, nontoxic appearing, vital signs appropriate. His lower extremities are neurovascularly intact, he is ambulatory, no bowel or bladder incontinence or saddle anesthesia or fevers. He did have a fall 3 weeks ago onto the right hip that did not immediately cause his pain however we will recheck right hip x-ray given this remote trauma. He is hoping for a prescription of Vicodin for this breakthrough pain as this has worked for him in the past and he is currently in the long process of waiting for neurosurgery evaluation. Reviewed prior ER notes from 12/21/2024, 11/26/2024, 10/28/2024. Patient most recently received hydrocodone 12/21, he was seen by Dr. Romero in the ED at that time but I actually sent the prescription to the pt's pharmacy for him as the initial script can not be filled with the patient's pharmacy. Hip/pelvis x-ray reveals no acute bony abnormality but there is moderate bilateral hip degenerative changes. Printed discussed results with the patient and at the bedside, he is feeling much better after a ED treatment, we discussed that ER can not prescribe were refill long-term pain medication that he will need to follow up with pain management, neurosurgeon, PCP, etc. A three day course of pain medicine was sent to his pharmacy, discussed risks of opioids and also non opioid supportive care. Patient and his verbalized understanding of all information agreeable with the plan, he is ambulatory stable for discharge home. Discharge Plan Departure Patient Disposition: Home Clinical Impression: Acute exacerbation of chronic low back pain, Acute right lumbar radiculopathy, Degenerative joint disease of both hips Instructions: DI for Lumbar Radiculopathy Activity Restrictions/Additional Instructions: Dear Mr. Solis, Thank you for coming to the emergency department. Today you were evaluated for right-sided low back pain. Your x-ray did not reveal any broken bones in the hip you do have degenerative changes/arthritis in both hips. Please follow up with your primary care doctor, I am hopeful that you will get an appointment with neurosurgery soon for further management of your low back pain. Please return to the emergency department with any new or worsening symptoms, severe pain, bowel or bladder dysfunction, fevers or other concerns. You have been prescribed a short course of narcotic medications. These are potentially dangerous and addictive medications that should be used carefully. While on these medications you cannot drive or operate heavy machinery. Additionally, you cannot sign legal documents or perform any duties such as this. Many people get constipated on narcotic medications so it would be advisable to discuss stool softeners with the pharmacist when you product picker your prescription. Please understand that we cannot provide further refills of narcotics or controlled substances through the ED and your pain management will need to be through your Primary Care Provider. Please follow up with your primary care doctor within the next 2-3 days for ER follow-up. (If you do not have a PCP you can call [phone]. ?to schedule an appointment with an [facility] Primary Care Provider) IF YOU DEVELOP ANY NEW OR WORSENING SYMPTOMS, RETURN TO THE ER! Please read the attached instructions, they highlight more specific treatments and interventions for you at home. Thank you for letting me participate in your care, Jeni Wang PA-C Prescriptions: New hydrocodone-acetaminophen 5-325 mg tablet 1 tab PO Q4-6H PRN (Reason: pain) Qty: 12 0RF No Action hydrocodone-acetaminophen 5-325 mg tablet 1 tab PO Q6H PRN (Reason: pain) Qty: 30 0RF oxycodone 10 mg tablet 10 mg PO Q8H PRN (Reason: pain) Qty: 30 0RF lisinopril 5 mg tablet 5 mg PO DAILY Ozempic 0.25 mg or 0.5 mg (2 mg/3 mL) pen injector 0.25 mg SUBCUT QWEEK Rx Instructions: for 4 weeks hydrocodone-acetaminophen 5-325 mg tablet 1 tab PO BEDTIME PRN (Reason: pain) Qty: 30 0RF hydrocodone-acetaminophen 5-325 mg tablet 1 tab PO Q6H PRN (Reason: pain) Qty: 30 0RF hydrocodone-acetaminophen 5-325 mg tablet 1 tab PO Q4-6H PRN (Reason: pain) Qty: 20 0RF metformin 500 mg tablet 500 mg PO QID atorvastatin 80 mg tablet 80 mg PO DAILY gabapentin [Neurontin] 600 mg tablet 600 mg PO QID Referrals: Nathan Aviles DO [Primary Care Provider, Family Practice] Stand Alone Forms: Patient Portal/API
--- NOTE | 2025-01-23 15:33 | DI.RAD.S_ITS ---
PROCEDURE: XR HIP W PEL IF DONE RT 2V INDICATIONS: R hip pain; fall 3 weeks ago TECHNIQUE: AP pelvis with lateral view(s) of the right hip(s). COMPARISON: [facility], , XR HIP W PEL RT 2V, 10/28/2024, 20:04. FINDINGS: Bones: No fractures or dislocations. Pelvic ring appears intact. No suspicious bony lesions. Moderate bilateral hip degenerative changes. Soft tissues: The visualized bowel gas pattern is normal. No suspicious soft tissue calcifications. IMPRESSION: No acute bony abnormality. Moderate bilateral hip degenerative changes. If symptoms persist with conservative management, consider cross-sectional imaging such as CT or MRI. Approved by: Amy Alejandro M.D.,Ph.D. on 01/23/2025 at 16:49
[2025-01-23] MEDS: KETOROLAC 30 MG/ML VIAL IM (15:44)
== END 2025-01-23 17:14 | disposition home or self-care (01) ==
PROVIDERS: Emergency Provider Physician Assistant; PCP Family Medicine
DX: M54.50 Low back pain, unspecified (principal); M54.16 Radiculopathy, lumbar region; M16.0 Bilateral primary osteoarthritis of hip
CPT/HCPCS: 73502; 96372; 99283; J1885

== ENCOUNTER 2025-02-13 16:22 | Emergency (ER) | payer OTHER, SELFPAY ==
[2023-01-02 22:29] VITALS: BMI 29.9
[2025-02-13 16:29] VITALS: BP 134/67; PULSE 74; RESP 16; TEMP 36.4; O2SAT 96; BMI 29.5
--- NOTE | 2025-02-13 16:54 | ED.BACK ---
HPI - Back Pain/Injury <Jeni Wang PA-C - Last Filed: 02/13/25 17:35> General Chief Complaint: Back Pain/Injury Stated Complaint: Nerv pn low back Time Seen by Provider: 02/13/25 16:34 Source: patient History of Present Illness HPI Narrative: Mr. Solis is a pleasant 64-year-old gentleman with a past medical history of chronic low back pain, [id number] type 2 diabetes on Ozempic and metformin, hyperlipidemia, hypertension, peripheral neuropathy presents to the emergency department for acute on chronic exacerbation of low back pain radiating to the right leg x5 days. He has been dealing with this pain for multiple months, he does come to the ER occasionally for severe breakthrough pain [facility] not [facility] and the only pain medications that seemed to help him are hydrocodone and when he receives Toradol in the ED. Does have 800 mg Motrin that he takes at home in addition to lidocaine patches and pregabalin. He denies any new trauma or falls. Reports that he was cleaning a mattress yesterday which aggravated the pain, he felt like he could fall due to the pain occasionally being sharp and shooting. Describes in nature as the pain as starting in the right paralumbar region and radiating down the thigh with associated tingling/numbness intermittently. He does ambulate independently without the use of assistive devices. He denies any bowel or bladder retention or dysfunction, dysuria, hematuria, flank pain, fevers, chills nausea, vomiting, abdominal pain. He is here with his . He is excited to share that he has an appointment with Neurosurgery at 8:45 a.m. on Mar 01 to address this pain. Pain is improved by reaching down/touching his toes. Related Data Home Medications ?Medication ?Instructions ?Recorded ?Confirmed atorvastatin 80 mg tablet 80 mg PO DAILY 05/02/19 09/29/24 gabapentin 600 mg tablet 600 mg PO QID 05/02/19 09/29/24 (Neurontin) metformin 500 mg tablet 500 mg PO QID 05/02/19 09/29/24 lisinopril 5 mg tablet 5 mg PO DAILY 08/31/24 09/29/24 semaglutide 0.25 mg or 0.5 mg (2 0.25 mg SUBCUT QWEEK 08/31/24 09/29/24 mg/3 mL) subcutaneous pen injector (Ozempic) Previous Rx's ?Medication ?Instructions ?Recorded hydrocodone 5 mg-acetaminophen 325 1 tab PO Q6H PRN pain #30 tabs 09/16/25 mg tablet hydrocodone 5 mg-acetaminophen 325 1 tab PO Q6H PRN pain #30 tabs 09/22/24 mg tablet oxycodone 10 mg tablet 10 mg PO Q8H PRN pain #30 tabs 09/30/24 hydrocodone 5 mg-acetaminophen 325 1 tab PO Q4-6H PRN pain #20 tabs 10/28/24 mg tablet hydrocodone 5 mg-acetaminophen 325 1 tab PO BEDTIME PRN pain #30 tabs 11/26/24 mg tablet hydrocodone 5 mg-acetaminophen 325 1 tab PO Q4-6H PRN pain #12 tabs 01/23/25 mg tablet hydrocodone 10 mg-acetaminophen 1 tab PO Q6H PRN pain 3 days #12 02/13/25 325 mg tablet tabs ketorolac 10 mg tablet 10 mg PO Q8H PRN pain #14 tabs 02/13/25 Allergies Allergy/AdvReac Type Severity Reaction Status Date / Time No Known Drug Allergies Allergy Verified 01/23/25 15:13 Review of Systems <Jeni Wang PA-C - Last Filed: 02/13/25 17:35> Review of Systems ROS Unobtainable: All systems reviewed & are unremarkable except as noted in HPI and below Patient History <Jeni Wang PA-C - Last Filed: 02/13/25 17:35> Medical History Labral tear of shoulder Rotator cuff tear Hyperlipidemia Low back pain Cervical radiculopathy Osteoarthritis Lower leg edema Non-insulin dependent type 2 diabetes mellitus Surgical History Status post hernia repair Status post cervical discectomy Social History marital status: household members: spouse lives independently: Yes occupational status: employed alcohol intake: former substance use type: does not use tobacco type: cigarettes alcohol intake frequency: other Exam <Jeni Wang PA-C - Last Filed: 02/13/25 17:35> Narrative Exam Narrative: GENERAL: 64 year old patient appears stated age. Well-developed patient, in no acute distress. HEAD: Atraumatic. Normocephalic. EYES: No scleral icterus. No injection or drainage. NECK: Trachea midline. Cervical ROM intact. CARDIOVASCULAR: Regular rate and rhythm. RESPIRATORY: ?Nonlabored respirations. ?Speaking in clear, full sentences. ?Clear to auscultation. Breath sounds equal bilaterally. No wheezes, rales, or rhonchi. ? GASTROINTESTINAL: Abdomen soft, non-tender, nondistended. EXTREMITIES: No LE edema or calf tenderness. Neg SLR BL to 90 degrees. BACK: No midline spinal tenderness. Subjective pain is in the right paralumbar spinal region where patient has a lidocaine patch. This pain is not reproducible with palpation but is reproducible with movement. NEURO: AOx3. ?Clear speech. ?Moves all 4 extremities appropriately. SITLT BL groin, calves. SKIN: No rash or erythema of visible areas Initial Vital Signs Initial Vital Signs: Vital Signs Temperature 97.5 F L 02/13/25 16:29 Pulse Rate 74 02/13/25 16:29 Respiratory Rate 16 02/13/25 16:29 Blood Pressure 134/67 02/13/25 16:29 Pulse Oximetry 96 02/13/25 16:29 Oxygen Delivery Method Room Air 02/13/25 16:29 <Juanita Rendon MD - Last Filed: 02/13/25 23:51> Initial Vital Signs Initial Vital Signs: Vital Signs Temperature 97.5 F L 02/13/25 16:29 Pulse Rate 74 02/13/25 16:29 Respiratory Rate 16 02/13/25 16:29 Blood Pressure 134/67 02/13/25 16:29 Pulse Oximetry 96 02/13/25 16:29 Oxygen Delivery Method Room Air 02/13/25 16:29 Course <Jeni Wang PA-C - Last Filed: 02/13/25 17:35> Orders Ordered: Discontinued Medications Hydrocodone Bitart/Acetaminophen (Hydrocodone/Acet 10/325 Tablet) 1 tab PO NOW ONE Stop: 02/13/25 17:05 Last Admin: 02/13/25 17:17 Dose: 1 tab Documented By: ARTHUR Ketorolac Tromethamine (Ketorolac 30 Mg/Ml Vial) 30 mg IM NOW ONE Stop: 02/13/25 17:05 Last Admin: 02/13/25 17:07 Dose: 30 mg Documented By: ARTHUR Vital Signs Vital signs: Vital Signs - 8 hr 02/13/25 16:29 02/13/25 17:23 Temperature 97.5 F L Pulse Rate 74 70 Respiratory Rate 16 16 Blood Pressure 134/67 130/65 Pulse Oximetry 96 97 Oxygen Delivery Method Room Air Room Air <Juanita Rendon MD - Last Filed: 02/13/25 23:51> Orders Ordered: Discontinued Medications Hydrocodone Bitart/Acetaminophen (Hydrocodone/Acet 10/325 Tablet) 1 tab PO NOW ONE Stop: 02/13/25 17:05 Last Admin: 02/13/25 17:17 Dose: 1 tab Documented By: ARTHUR Ketorolac Tromethamine (Ketorolac 30 Mg/Ml Vial) 30 mg IM NOW ONE Stop: 02/13/25 17:05 Last Admin: 02/13/25 17:07 Dose: 30 mg Documented By: ARTHUR Vital Signs Vital signs: Vital Signs - 8 hr 02/13/25 16:29 02/13/25 17:23 Temperature 97.5 F L Pulse Rate 74 70 Respiratory Rate 16 16 Blood Pressure 134/67 130/65 Pulse Oximetry 96 97 Oxygen Delivery Method Room Air Room Air MDM - Back Pain/Injury <Jeni Wang PA-C - Last Filed: 02/13/25 17:35> Medical Records Attestation: I reviewed the patient's medical records. Medical records narrative: Imaging: Lumbar spine x-ray 09/29/2024, MRI 10/03 to , pelvis MRI 10/03/2024, femur x-ray 10/28/2024, hip x-ray x-rays , right hip x-ray 01/23/2025. ED visits for current pain on 10/28/2024, 11/26/2024, 12/21/2024, 01/23/2025. MDM Narrative Medical decision making narrative: 64-year-old gentleman with a past medical history of chronic low back pain, ccb-[id number] type 2 diabetes on Ozempic and metformin, hyperlipidemia, hypertension, peripheral neuropathy presents to the emergency department for acute on chronic exacerbation of low back pain radiating to the right leg x5 days. Differential diagnosis includes but isn't limited to sacroiliitis, lumbar radiculopathy, osteoarthritis, etc. On exam the patient is in no acute distress, nontoxic-appearing, all vital signs within normal limits. He is ambulatory. He is not experiencing any bowel or bladder incontinence, dysfunction or saddle anesthesia. No fevers. No trauma or fall. This is the patient's 5th ER visit in the last 4 months for his current pain, I have seen him once beofre, he unfortunately has been relying on the ER for acute pain control as his PCP will not prescribe opioids. He does however have an appointment with Neurosurgery on March 01 to address this pain. Discussed with attending ER MD Dr. Rendon, given patient history and approaching specilaist appointment, will prescribe short course of hydrocodone today. Physical exam reveals no red flags for cauda equina at this time, he is ambulatory, he is neurovascularly intact, he is afebrile, he is having no issues using the bathroom. We will treat with Toradol, hydrocodone, acetaminophen, he already has Lidoderm for pregabalin at home. Discussed the risks of opioids, his is here to drive him home. Discussed ER return precautions. Discussed nonopioid analgesia for home as well. Patient verbalized understanding of all information agreeable with the plan. He is ambulatory and stable for discharge home. Discharge Plan Departure Patient Disposition: Home Clinical Impression: Chronic right-sided lumbar radiculopathy Instructions: DI for Low Back Pain Activity Restrictions/Additional Instructions: Dear Mr. Solis, Thank you for coming to the emergency department. Today you were evaluated for an acute exacerbation of your right-sided low back pain. You have been treated with an injection of ketorolac today in addition to oral hydrocodone-acetaminophen. You have been prescribed oral ketorolac and oral hydrocodone-acetaminophen. These are only medications that can be used short term. It is very important to use Motrin/ibuprofen and acetaminophen/Tylenol for mild/moderate/chronic pain and only use opioids for severe acute pain. Please continue using your pregabalin, Lidoderm, heat, ice, stretching as well. Please follow up with your primary care doctor, please follow up with Neurosurgery on March 01 as scheduled. You have been prescribed a short course of narcotic medications. These are potentially dangerous and addictive medications that should be used carefully. While on these medications you cannot drive or operate heavy machinery. Additionally, you cannot sign legal documents or perform any duties such as this. 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 Please understand that we cannot provide further refills of narcotics or controlled substances through the ED and your pain management will need to be through your Primary Care Provider Please return to the emergency department develop any new or worsening symptoms, difficulty going to the bathroom, fevers or other concerns. Please follow up with your primary care doctor within the next 2-3 days for ER follow-up. (If you do not have a PCP you can call [phone]. ?to schedule an appointment with an [facility] Primary Care Provider) IF YOU DEVELOP ANY NEW OR WORSENING SYMPTOMS, RETURN TO THE ER! Please read the attached instructions, they highlight more specific treatments and interventions for you at home. Thank you for letting me participate in your care, Jeni Wang PA-C Prescriptions: New hydrocodone-acetaminophen 10-325 mg tablet 1 tab PO Q6H PRN (Reason: pain) 3 Days Qty: 12 0RF Rx Instructions: Take 0.5 to 1 tablet every 6 hours as needed for severe pain. ketorolac 10 mg tablet 10 mg PO Q8H PRN (Reason: pain) Qty: 14 0RF Rx Instructions: maximum total duration of 5 days from all oral, intranasal, or parenteral formulations No Action hydrocodone-acetaminophen 5-325 mg tablet 1 tab PO Q6H PRN (Reason: pain) Qty: 30 0RF oxycodone 10 mg tablet 10 mg PO Q8H PRN (Reason: pain) Qty: 30 0RF lisinopril 5 mg tablet 5 mg PO DAILY Ozempic 0.25 mg or 0.5 mg (2 mg/3 mL) pen injector 0.25 mg SUBCUT QWEEK Rx Instructions: for 4 weeks hydrocodone-acetaminophen 5-325 mg tablet 1 tab PO BEDTIME PRN (Reason: pain) Qty: 30 0RF hydrocodone-acetaminophen 5-325 mg tablet 1 tab PO Q6H PRN (Reason: pain) Qty: 30 0RF hydrocodone-acetaminophen 5-325 mg tablet 1 tab PO Q4-6H PRN (Reason: pain) Qty: 20 0RF hydrocodone-acetaminophen 5-325 mg tablet 1 tab PO Q4-6H PRN (Reason: pain) Qty: 12 0RF metformin 500 mg tablet 500 mg PO QID atorvastatin 80 mg tablet 80 mg PO DAILY gabapentin [Neurontin] 600 mg tablet 600 mg PO QID Referrals: Nathan Aviles DO [Primary Care Provider, Family Practice] Stand Alone Forms: Patient Portal/API ED Sign-out <Juanita Rendon MD - Last Filed: 02/13/25 23:51> Cosign ED Attending Faisal Attestation: I was immediately available in the department for consultation throughout this patient's visit. Juanita Rendon MD
[2025-02-13] MEDS: KETOROLAC 30 MG/ML VIAL IM (17:07)
[2025-02-13 17:23] VITALS: BP 130/65; PULSE 70; RESP 16; O2SAT 97
== END 2025-02-13 17:25 | disposition home or self-care (01) ==
PROVIDERS: Emergency Provider Physician Assistant; PCP Family Medicine
DX: M54.16 Radiculopathy, lumbar region (principal)
CPT/HCPCS: 96372; 99283; J1885

== ENCOUNTER 2025-02-21 17:01 | Emergency (ER) | payer OTHER, SELFPAY ==
[2023-01-02 22:29] VITALS: BMI 29.9
[2025-02-21 17:04] VITALS: BP 132/70; PULSE 67; RESP 17; TEMP 36.4; O2SAT 98; BMI 29.7
--- NOTE | 2025-02-21 17:37 | ED_ITS ---
HPI - Back Pain/Injury
--- NOTE | 2025-02-21 17:37 | ED.BACK ---
HPI - Back Pain/Injury General Chief Complaint: Back Pain/Injury Stated Complaint: back pain/injury Time Seen by Provider: 02/21/25 17:08 Source: patient History of Present Illness HPI Narrative: 64-year-old gentleman with chronic low back pain with sciatica worsening, he has had thorough workup and has not appointment with a neurosurgeon to discuss this further on March 01. Yesterday he went to get out of his car twisted step down and had significant increased pain on the right side. His chronic pain was causing numbness down the anterior part of his right thigh and now the numbness is extending just past the knee laterally with some pain radiating down into the right ankle. He is not having any worsening associated weakness, no saddle anesthesia, urinary retention or change to bowel habits. He has been using ibuprofen 800 mg and is finding the pain intolerable at this point. Comes in for further assistance. He has no fevers no cough no abdominal pain no other complaints. Related Data Home Medications ?Medication ?Instructions ?Recorded ?Confirmed atorvastatin 80 mg tablet 80 mg PO DAILY 05/02/19 09/29/24 gabapentin 600 mg tablet 600 mg PO QID 05/02/19 09/29/24 (Neurontin) metformin 500 mg tablet 500 mg PO QID 05/02/19 09/29/24 lisinopril 5 mg tablet 5 mg PO DAILY 08/31/24 09/29/24 semaglutide 0.25 mg or 0.5 mg (2 0.25 mg SUBCUT QWEEK 08/31/24 09/29/24 mg/3 mL) subcutaneous pen injector (Ozempic) Previous Rx's ?Medication ?Instructions ?Recorded hydrocodone 5 mg-acetaminophen 325 1 tab PO Q6H PRN pain #30 tabs 09/16/24 mg tablet hydrocodone 5 mg-acetaminophen 325 1 tab PO Q6H PRN pain #30 tabs 09/22/24 mg tablet oxycodone 10 mg tablet 10 mg PO Q8H PRN pain #30 tabs 09/30/24 hydrocodone 5 mg-acetaminophen 325 1 tab PO Q4-6H PRN pain #20 tabs 10/28/24 mg tablet hydrocodone 5 mg-acetaminophen 325 1 tab PO BEDTIME PRN pain #30 tabs 11/26/24 mg tablet hydrocodone 5 mg-acetaminophen 325 1 tab PO Q4-6H PRN pain #12 tabs 01/23/25 mg tablet ketorolac 10 mg tablet 10 mg PO Q8H PRN pain #14 tabs 02/13/25 dexamethasone 4 mg tablet 10 mg (2.5 x 4 mg) PO DAILY #5 tabs 02/21/25 hydrocodone 10 mg-acetaminophen 1 tab PO Q6H PRN pain #25 tabs 02/21/25 325 mg tablet Allergies Allergy/AdvReac Type Severity Reaction Status Date / Time No Known Drug Allergies Allergy Verified 02/21/25 17:06 Review of Systems Review of Systems Narrative: Pertinent positive and negative findings as per HPI Patient History Medical History Labral tear of shoulder Rotator cuff tear Hyperlipidemia Low back pain Cervical radiculopathy Osteoarthritis Lower leg edema Non-insulin dependent type 2 diabetes mellitus Surgical History Status post hernia repair Status post cervical discectomy Social History marital status: household members: spouse lives independently: Yes occupational status: employed alcohol intake: former substance use type: does not use tobacco type: cigarettes alcohol intake frequency: other Exam Initial Vital Signs Initial Vital Signs: Vital Signs Temperature 97.5 F L 02/21/25 17:04 Pulse Rate 67 02/21/25 17:04 Respiratory Rate 17 02/21/25 17:04 Blood Pressure 132/70 02/21/25 17:04 Pulse Oximetry 98 02/21/25 17:04 Oxygen Delivery Method Room Air 02/21/25 17:04 General: Alert appropriate in no acute distress Respiratory: Able to speak in full sentences, no obvious respiratory distress Skin: No obvious rashes, warm and dry Neurologic: Grossly intact no obvious asymmetries or abnormalities Psych: appropriate insight and affect, cooperative Extremity: He does not have any redness warmth or edema over his lower lumbar spine. He does have slight decreased sensation over his right lateral thigh that he describes as his baseline. Diminished diminished patellar reflexes. He is able to stand and hold his weight completely on the right side. Feels that if pain or not interfering [place] at his baseline with walking. Course Vital Signs Vital signs: Vital Signs - 8 hr 02/21/25 17:04 Temperature 97.5 F L Pulse Rate 67 Respiratory Rate 17 Blood Pressure 132/70 Pulse Oximetry 98 Oxygen Delivery Method Room Air MDM - Back Pain/Injury MDM Narrative Medical decision making narrative: 64-year-old gentleman with the acute exacerbation of chronic back pain with right-sided sciatica. His description is fairly classic, his main concern is pain control he notes he does have a neurosurgical appointment scheduled for this issue next week. In the past he has had success with small amounts of 10 mg of hydrocodone. He has also had success with Toradol and with oral steroids. He does not show any signs or symptoms of dramatically worsening weakness, paresthesias or cauda equina syndrome. There was no indication for additional imaging or blood work today. He is given IM Toradol, to Vicodin and 12 mg of oral dexamethasone. On re-evaluation he was feeling much better. He is given 2 additional days of dexamethasone, 10 mg to take on the and the 6th. He is given a total of 25 tablets of Vicodin to last him until he is able to get to his neurosurgeon next week. Questions are answered and he is safely Discharge Plan Departure Patient Disposition: Home Clinical Impression: Acute exacerbation of chronic low back pain Instructions: DI for Back Pain With Sciatica Activity Restrictions/Additional Instructions: Thank you for coming in tonight. I am sorry that you ended up twisting just the wrong way and exacerbating your back pain. Based on your physical exam, I believe that you exacerbated your chronic issue but I do not think that you have made things significantly worse In the emergency department you were given a shot of Toradol, your 1st dose of dexamethasone and a dose of Vicodin. I have sent prescriptions for 2 more doses of dexamethasone and additional Vicodin to [facility] in [place] I hope that you are appointment with the neurosurgeon for follow up on your back pain next week goes well Prescriptions: New dexamethasone 4 mg tablet 10 mg PO DAILY Qty: 5 0RF hydrocodone-acetaminophen 10-325 mg tablet 1 tab PO Q6H PRN (Reason: pain) Qty: 25 0RF No Action hydrocodone-acetaminophen 5-325 mg tablet 1 tab PO Q6H PRN (Reason: pain) Qty: 30 0RF oxycodone 10 mg tablet 10 mg PO Q8H PRN (Reason: pain) Qty: 30 0RF lisinopril 5 mg tablet 5 mg PO DAILY Ozempic 0.25 mg or 0.5 mg (2 mg/3 mL) pen injector 0.25 mg SUBCUT QWEEK Rx Instructions: for 4 weeks hydrocodone-acetaminophen 5-325 mg tablet 1 tab PO BEDTIME PRN (Reason: pain) Qty: 30 0RF hydrocodone-acetaminophen 5-325 mg tablet 1 tab PO Q6H PRN (Reason: pain) Qty: 30 0RF hydrocodone-acetaminophen 5-325 mg tablet 1 tab PO Q4-6H PRN (Reason: pain) Qty: 20 0RF hydrocodone-acetaminophen 5-325 mg tablet 1 tab PO Q4-6H PRN (Reason: pain) Qty: 12 0RF ketorolac 10 mg tablet 10 mg PO Q8H PRN (Reason: pain) Qty: 14 0RF Rx Instructions: maximum total duration of 5 days from all oral, intranasal, or parenteral formulations metformin 500 mg tablet 500 mg PO QID atorvastatin 80 mg tablet 80 mg PO DAILY gabapentin [Neurontin] 600 mg tablet 600 mg PO QID Referrals: Nathan Aviles DO [Primary Care Provider, Family Practice] Stand Alone Forms: Patient Portal/API
[2025-02-21] MEDS: KETOROLAC 30 MG/ML VIAL IM (17:54)
== END 2025-02-21 18:20 | disposition home or self-care (01) ==
PROVIDERS: Emergency Provider Emergency Medicine; PCP Family Medicine
DX: M54.41 Lumbago with sciatica, right side (principal)
CPT/HCPCS: 96372; 99283; J1885

== ENCOUNTER 2025-03-18 09:17 | Emergency (ER) | payer OTHER, SELFPAY ==
[2023-01-02 22:29] VITALS: BMI 29.9
[2025-03-18 09:42] VITALS: BP 152/74; PULSE 70; RESP 16; TEMP 37.2; O2SAT 100; BMI 28.6
--- NOTE | 2025-03-18 12:31 | ED_ITS ---
HPI - Back Pain/Injury General Chief Complaint: Back Pain/Injury Stated Complaint: Vertebrae/Nerve pain Time Seen by Provider: 03/18/25 09:31 Source: patient History of Present Illness HPI Narrative: 64-year-old gentleman history of chronic low back pain with sciatica presents with pain despite pain medication for which he ran out upcoming specialist appointment once he gets his diabetes under control. Denies any recent trauma bowel or bladder incontinence abdominal pain chest pain shortness of breath. Other than what is stated 14 point review of system is negative. Related Data Home Medications ?Medication ?Instructions ?Recorded ?Confirmed atorvastatin 80 mg tablet 80 mg PO DAILY 05/02/1909/18 gabapentin 600 mg tablet 600 mg PO QID 05/02/1909/29 (Neurontin) metformin 500 mg tablet 500 mg PO QID 05/02/1909/29 lisinopril 5 mg tablet 5 mg PO DAILY 08/31/2409/29 semaglutide 0.25 mg or 0.5 mg (2 0.25 mg SUBCUT QWEEK 08/31/24 09/29/24 mg/3 mL) subcutaneous pen injector (FlickIMempic) Previous Rx's ?Medication ?Instructions ?Recorded hydrocodone 5 mg-acetaminophen 325 1 tab PO Q6H PRN pa in #30 tabs 09/16/25 mg tablet hydrocodone 5 mg-acetaminophen 325 1 tab PO Q6H PRN pa in #30 tabs 09/22/24 mg tablet oxycodone 10 mg tablet 10 mg PO Q8H PRN pain #30 ta bs 09/30/24 hydrocodone 5 mg-acetaminophen 325 1 tab PO Q4-6H PRN pain #20 tabs 10/28/24 mg tablet hydrocodone 5 mg-acetaminophen 325 1 tab PO BEDTIME FL N pain #30 tabs 11/26/24 mg tablet hydrocodone 5 mg-acetaminophen 325 1 tab PO Q4-6H PRN pain #12 tabs 01/23/25 mg tablet ketorolac 10 mg tablet 10 mg PO Q8H PRN pain #14 ta bs 02/13/25 dexamethasone 4 mg tablet 10 mg (2.5 x 4 mg) PO DAILY #5 tabs 02/21/25 hydrocodone 10 mg-acetaminophen 1 tab PO Q6H PRN pain #25 tabs 11/04/25 325 mg tablet hydrocodone 10 mg-acetaminophen 1 tab PO Q4-6H PRN karishma n #20 tabs 03/18/25 325 mg tablet Allergies Allergy/AdvReac Type Severity Reaction Status Date / Time No Known Drug Allergies Allergy Verified 03/18/25 14:11 Review of Systems Review of Systems ROS Unobtainable: All systems reviewed & are unremarkable except as noted in HPI and below Patient History Medical History Labral tear of shoulder Rotator cuff tear Hyperlipidemia Low back pain Cervical radiculopathy Osteoarthritis Lower leg edema Non-insulin dependent type 2 diabetes mellitus Surgical History Status post hernia repair Status post cervical discectomy Social History marital status: household members: spouse lives independently: Yes occupational status: employed alcohol intake: former substance use type: does not use tobacco type: cigarettes alcohol intake frequency: other Exam Narrative Exam Narrative: GENERAL: [64] year old patient appears stated age. Well-developed patient, in mild distress. HEAD: Atraumatic. Normocephalic. EYES: Pupils equal round and reactive. Extraocular motions intact. No scleral icterus. No injection or drainage. NECK: Trachea midline. Non tender CARDIOVASCULAR: Regular rate and rhythm without murmurs, gallops, or rubs. RESPIRATORY: Clear to auscultation. Breath sounds equal bilaterally. No wheezes, rales, or rhonchi. GASTROINTESTINAL: Abdomen soft, non-tender, nondistended. EXTREMITIES: No edema or joint tenderness. BACK: TTP lumboparaspinal region L1-5 NEURO: AOx3. SKIN: No rash or erythema of visible areas Initial Vital Signs Initial Vital Signs: Vital Signs Temperature 98.9 F 03/18/25 09:42 Pulse Rate 70 03/18/25 09:42 Respiratory Rate 16 03/18/25 09:42 Blood Pressure 152/74 H 03/18/25 09:42 Pulse Oximetry 100 03/18/25 09:42 Oxygen Delivery Method Room Air 03/18/25 09:42 Course Vital Signs Vital signs: Vital Signs - 8 hr 03/18/25 09:42 Temperature 98.9 F Pulse Rate 70 Respiratory Rate 16 Blood Pressure 152/74 H Pulse Oximetry 100 Oxygen Delivery Method Room Air MDM - Back Pain/Injury MDM Narrative Medical decision making narrative: All lab work, vital signs, nurse triage note, medication list, previous ER visits, and all imaging studies reviewed. Patient given trigger point injection [place] here Discharge Plan Departure Patient Disposition: Home Clinical Impression: Acute low back pain Instructions: DI for Low Back Pain Activity Restrictions/Additional Instructions: Return with new or worsening symptoms. Take your medicines as directed. Follow up with MD appointments as previously scheduled. Prescriptions: New hydrocodone-acetaminophen 10-325 mg tablet 1 tab PO Q4-6H PRN (Reason: pain) Qty: 20 0RF No Action hydrocodone-acetaminophen 5-325 mg tablet 1 tab PO Q6H PRN (Reason: pain) Qty: 30 0RF oxycodone 10 mg tablet 10 mg PO Q8H PRN (Reason: pain) Qty: 30 0RF lisinopril 5 mg tablet 5 mg PO DAILY Ozempic 0.25 mg or 0.5 mg (2 mg/3 mL) pen injector 0.25 mg SUBCUT QWEEK Rx Instructions: for 4 weeks hydrocodone-acetaminophen 5-325 mg tablet 1 tab PO BEDTIME PRN (Reason: pain) Qty: 30 0RF hydrocodone-acetaminophen 5-325 mg tablet 1 tab PO Q6H PRN (Reason: pain) Qty: 30 0RF hydrocodone-acetaminophen 5-325 mg tablet 1 tab PO Q4-6H PRN (Reason: pain) Qty: 20 0RF hydrocodone-acetaminophen 5-325 mg tablet 1 tab PO Q4-6H PRN (Reason: pain) Qty: 12 0RF ketorolac 10 mg tablet 10 mg PO Q8H PRN (Reason: pain) Qty: 14 0RF Rx Instructions: maximum total duration of 5 days from all oral, intranasal, or parenteral formulations dexamethasone 4 mg tablet 10 mg PO DAILY Qty: 5 0RF hydrocodone-acetaminophen 10-325 mg tablet 1 tab PO Q6H PRN (Reason: pain) Qty: 25 0RF metformin 500 mg tablet 500 mg PO QID atorvastatin 80 mg tablet 80 mg PO DAILY gabapentin [Neurontin] 600 mg tablet 600 mg PO QID Referrals: Nathan Aviles DO [Primary Care Provider, Family Practice]
== END 2025-03-18 10:30 | disposition home or self-care (01) ==
PROVIDERS: Emergency Provider Family Medicine; PCP Family Medicine
DX: M54.50 Low back pain, unspecified (principal); G89.29 Other chronic pain
CPT/HCPCS: 99281

== ENCOUNTER 2025-03-18 13:55 | Emergency (ER) | payer OTHER, SELFPAY ==
[2023-01-02 22:29] VITALS: BMI 29.9
[2025-03-18 14:11] VITALS: BP 156/73; PULSE 71; RESP 18; TEMP 36.4; O2SAT 97; BMI 28.6
[2025-03-18] MEDS: TRIAMCINOLONE 40 MG/ML VIAL INJ (16:06)
[2025-03-18] MEDS: LIDOCAINE 2% INJ MDV 20ML 10 ML INJ (16:07)
[2025-03-18 16:41] VITALS: BP 146/79; PULSE 71; RESP 14; O2SAT 99
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
== END 2025-03-18 16:41 | disposition home or self-care (01) ==
PROVIDERS: Emergency Provider Family Medicine; PCP Family Medicine
DX: M54.41 Lumbago with sciatica, right side (principal)
CPT/HCPCS: 20552; 99281; 99282; 99283

== ENCOUNTER 2025-04-08 09:33 | Emergency (ER) | payer OTHER, SELFPAY ==
[2023-01-02 22:29] VITALS: BMI 29.9
[2025-04-08 09:36] VITALS: BP 157/78; PULSE 69; RESP 13; TEMP 36.1; O2SAT 100; BMI 27.8
--- OUTSIDE RECORDS SUMMARY | 2025-04-08 09:39 | XMS_ITS | Clinical Summary ---
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
--- NOTE | 2025-04-08 11:05 | ED.BACK ---
HPI - Back Pain/Injury General Chief Complaint: Back Pain/Injury Stated Complaint: Px from low back pain shoot RT down leg,can't walk Time Seen by Provider: 04/08/25 09:40 Source: patient History of Present Illness HPI Narrative: The patient is a 65 year old man presenting with an acute exacerbation of sciatica. His medical history includes cervical radiculopathy status post fusion, chronic low back pain, osteoarthritis, diabetes, and hyperlipidemia. He reports that a neurosurgeon previously recommended lumbar surgery, but he is not currently a surgical candidate due to an elevated A1c. He describes his current low back pain as 6/10, radiating into the buttock, with episodes reaching 9/10 in severity. The pain is sharp and can radiate down to the anterior knee. He has been taking tylenol, motrin, and gabapentin, but states that when the pain is at its worse, he requires vicodine. He denies prior lumbar surgical instrumentation, perineal paresthesia, bowel or bladder incontinence, fever, chills, nausea, or vomiting. Related Data Home Medications ?Medication ?Instructions ?Recorded ?Confirmed atorvastatin 80 mg tablet 80 mg PO DAILY 05/02/19 09/29/24 gabapentin 600 mg tablet 600 mg PO QID 05/02/19 09/29/24 (Neurontin) metformin 500 mg tablet 500 mg PO QID 05/02/19 09/29/24 lisinopril 5 mg tablet 5 mg PO DAILY 08/31/24 09/29/24 semaglutide 0.25 mg or 0.5 mg (2 0.25 mg SUBCUT QWEEK 08/31/24 09/29/24 mg/3 mL) subcutaneous pen injector (Ozempic) Previous Rx's ?Medication ?Instructions ?Recorded hydrocodone 5 mg-acetaminophen 325 1 tab PO Q6H PRN pain #30 tabs 09/16/ mg tablet hydrocodone 5 mg-acetaminophen 325 1 tab PO Q6H PRN pain #30 tabs 09/22/24 mg tablet oxycodone 10 mg tablet 10 mg PO Q8H PRN pain #30 tabs 09/30/24 hydrocodone 5 mg-acetaminophen 325 1 tab PO Q4-6H PRN pain #20 tabs 10/28/24 mg tablet hydrocodone 5 mg-acetaminophen 325 1 tab PO BEDTIME PRN pain #30 tabs 11/26/24 mg tablet hydrocodone 5 mg-acetaminophen 325 1 tab PO Q4-6H PRN pain #12 tabs 01/23/25 mg tablet ketorolac 10 mg tablet 10 mg PO Q8H PRN pain #14 tabs 02/13/25 dexamethasone 4 mg tablet 10 mg (2.5 x 4 mg) PO DAILY #5 tabs 02/21/25 hydrocodone 10 mg-acetaminophen 1 tab PO Q6H PRN pain #25 tabs 02/21/25 325 mg tablet hydrocodone 10 mg-acetaminophen 1 tab PO Q4-6H PRN pain #20 tabs 03/18/25 325 mg tablet hydrocodone 5 mg-acetaminophen 300 1 tab PO BID PRN pain #10 tabs 04/08/25 mg tablet hydrocodone 5 mg-acetaminophen 325 1 tab PO Q4-6H PRN pain #10 tabs 04/08/25 mg tablet Allergies Allergy/AdvReac Type Severity Reaction Status Date / Time No Known Drug Allergies Allergy Verified 04/08/25 09:36 Review of Systems Review of Systems Narrative: See HPI. Patient History Medical History Labral tear of shoulder Rotator cuff tear Hyperlipidemia Low back pain Cervical radiculopathy Osteoarthritis Lower leg edema Non-insulin dependent type 2 diabetes mellitus Surgical History Status post hernia repair Status post cervical discectomy Social History marital status: household members: spouse lives independently: Yes occupational status: employed Smoking Status: Unknown if ever smoked alcohol intake: former substance use type: does not use Smoking Status: Unknown if ever smoked tobacco type: cigarettes alcohol intake frequency: other Exam Initial Vital Signs Initial Vital Signs: Vital Signs Temperature 97.0 F L 04/08/25 09:36 Pulse Rate 69 04/08/25 09:36 Respiratory Rate 13 04/08/25 09:36 Blood Pressure 157/78 H 04/08/25 09:36 Pulse Oximetry 100 04/08/25 09:36 Oxygen Delivery Method Room Air 04/08/25 09:36 Course Orders Ordered: Discontinued Medications Hydrocodone Bitart/Acetaminophen (Hydrocodone/Acet 10/325 Tablet) 1 tab PO NOW ONE Stop: 04/08/25 10:17 Last Admin: 04/08/25 10:47 Dose: 1 tab Documented By: MIREYA Vital Signs Vital signs: Vital Signs - 8 hr 04/08/25 09:36 Temperature 97.0 F L Pulse Rate 69 Respiratory Rate 13 Blood Pressure 157/78 H Pulse Oximetry 100 Oxygen Delivery Method Room Air MDM - Back Pain/Injury Lab Data 04/08/25 11:10 Labs: Lab Results 04/08/25 Range/Units 11:10 Sodium 138 (137-145) mmol/L Potassium 4.5 (3.4-5.1) mmol/L Chloride 103 (98-107) mmol/L Carbon Dioxide 27 (22-32) mmol/L BUN 16 (9-20) mg/dL Creatinine 0.64 L (0.66-1.25) mg/dL Estimated GFR > 60 (>60) mL/min BUN/Creatinine Ratio 25.0 H (6-22) Glucose 166 H (70-99) mg/dL Calcium 9.6 (8.4-10.2) mg/dL Total Bilirubin 0.4 (0.2-1.3) mg/dL AST 24 (17-59) IU/L ALT 30 (<50) IU/L Alkaline Phosphatase 84 (38-126) U/L Total Protein 7.2 (6.3-8.2) g/dL Albumin 4.1 (3.5-5.0) g/dL Globulin 3.1 (1.7-4.1) g/dL Albumin/Globulin Ratio 1.3 (1.0-2.8) [facility] Narrative Medical decision making narrative: 65 year old man with history of multilevel degenerative changes in the lumbar spine who presents with acute lower back pain. Differential diagnosis: Sciatica, muscle strain, degenerative joint disease, less likely epidural abscess/hematoma, cauda equina syndrome, nephrolithiasis, pyelonephritis, AAA EMR Review: Pelvic MRI obtained on 09/2024 positive for bilateral sacroilitis. MRI lumbar spine with findings throughout the lumbar spine with interval progression when compared to previous imaging obtained in 2022. More specifically. Moderate to severe right-sided neural foraminal narrowing is seen, with a degree of compression upon the exiting right L2 nerve root. Moderate to severe central canal narrowing is seen, as on series 6, image 16. Labs: Normal creatinine and liver function panel. Imaging: None Consults: None The patient is a 65 year old man with a history of chronic low back pain and right?sided radiculopathy who presents with an acute exacerbation of his symptoms. He reports multiple recent emergency department visits (10/28/24, 11/26/24, 12/21/24, 01/23/25, 02/21/25, 03/18/25), during which he was prescribed Percocet. He states that he was evaluated by neurosurgery and was advised that decompression surgery may be considered once his A1c is improved; he is currently taking Ozempic as part of his diabetes management. CMP was ordered because patient takes tylenol and motrin. During his most recent ER visit, he received a dose of Vicodin and was discharged with a prescription. He notes that he is now in the process of establishing appointments for physical therapy. He was encouraged to discuss with his primary care provider a referral to pain management and the possibility of adjusting his current neuropathic pain regimen, including titration of gabapentin and potential consideration of a tricyclic antidepressant. Discharge Plan Departure Patient Disposition: Home Clinical Impression: Sciatica of right side Instructions: DI for Back Pain With Sciatica Activity Restrictions/Additional Instructions: You were seen in the emergency department for acute exacerbation of your sciatica. In the ER you were given Vicodin and laboratory obtained did not reveal any abnormalities in your kidney or liver function. Recommendation: -- Continue Motrin, Tylenol, gabapentin, and lidocaine patches -- You've been given a few dose of Vicodin for severe pain -- Discuss with your primary care physician potential need for titration of gabapentin, initiation of tricyclic antidepressant for pain, and/or pain management referral while you wait for your A1c to decrease in order for you to have your spinal surgery. Prescriptions: New hydrocodone-acetaminophen 5-300 mg tablet 1 tab PO BID PRN (Reason: pain) Qty: 10 0RF hydrocodone-acetaminophen 5-325 mg tablet 1 tab PO Q4-6H PRN (Reason: pain) Qty: 10 0RF No Action hydrocodone-acetaminophen 5-325 mg tablet 1 tab PO Q6H PRN (Reason: pain) Qty: 30 0RF oxycodone 10 mg tablet 10 mg PO Q8H PRN (Reason: pain) Qty: 30 0RF lisinopril 5 mg tablet 5 mg PO DAILY Ozempic 0.25 mg or 0.5 mg (2 mg/3 mL) pen injector 0.25 mg SUBCUT QWEEK Rx Instructions: for 4 weeks hydrocodone-acetaminophen 5-325 mg tablet 1 tab PO BEDTIME PRN (Reason: pain) Qty: 30 0RF hydrocodone-acetaminophen 10-325 mg tablet 1 tab PO Q4-6H PRN (Reason: pain) Qty: 20 0RF hydrocodone-acetaminophen 5-325 mg tablet 1 tab PO Q6H PRN (Reason: pain) Qty: 30 0RF hydrocodone-acetaminophen 5-325 mg tablet 1 tab PO Q4-6H PRN (Reason: pain) Qty: 20 0RF hydrocodone-acetaminophen 5-325 mg tablet 1 tab PO Q4-6H PRN (Reason: pain) Qty: 12 0RF ketorolac 10 mg tablet 10 mg PO Q8H PRN (Reason: pain) Qty: 14 0RF Rx Instructions: maximum total duration of 5 days from all oral, intranasal, or parenteral formulations dexamethasone 4 mg tablet 10 mg PO DAILY Qty: 5 0RF hydrocodone-acetaminophen 10-325 mg tablet 1 tab PO Q6H PRN (Reason: pain) Qty: 25 0RF metformin 500 mg tablet 500 mg PO QID atorvastatin 80 mg tablet 80 mg PO DAILY gabapentin [Neurontin] 600 mg tablet 600 mg PO QID Referrals: Nathan Aviles DO [Primary Care Provider, Family Practice] Stand Alone Forms: Patient Portal/API
[2025-04-08 11:29] LABS: Alanine Aminotransferase 30 IU/L (<50); Albumin 4.1 g/dL (3.5-5.0); Albumin Globulin Ratio 1.3 (1.0-2.8); Alkaline Phosphatase 84 U/L (38-126); Blood Urea Nitrogen 16 mg/dL (9-20); Calcium 9.6 mg/dL (8.4-10.2); Carbon Dioxide 27 mmol/L (22-32); Chloride 103 mmol/L (98-107); Estimated Glomerular Filt Rate > 60 mL/min (>60); Globulin 3.1 g/dL (1.7-4.1); Glucose 166 mg/dL (70-99); HEMOLYSIS < 15 (0-50); Potassium 4.5 mmol/L (3.4-5.1); Sodium 138 mmol/L (137-145); Total Protein 7.2 g/dL (6.3-8.2)
== END 2025-04-08 11:54 | disposition home or self-care (01) ==
PROVIDERS: Emergency Provider Student in an Organized Health Care Education/Training Program; PCP Family Medicine
DX: M54.41 Lumbago with sciatica, right side (principal)
CPT/HCPCS: 80053; 99283